=== PATIENT | male | born 1940 | race Caucasian/White ===

== ENCOUNTER 2025-01-16 10:41 | Outpatient (AMB) | payer MEDICARE, OTHER, SELFPAY ==
--- NOTE | 2025-01-16 10:51 | HO.NEPHOV ---
Vital Signs 01/16/25 11:00 Height 5 ft 10 in Weight 224 lb 8 oz BMI 32.2 BP 112/60 Blood Pressure Location Rt brachial Position Sitting Pulse 66 Pulse Source Pulse Oximeter Pulse Oximetry (%) 95 Oxygen Delivery Method Room Air Intake Visit Reasons: ENP: CKD STG3-LVM Family Medicine Physician Required: No Accompanied by: Spouse Allergies adhesive tape Allergy (Verified 01/16/25 10:59) Unknown guaifenesin (From Maxiphen) Allergy (Verified 01/16/25 10:59) Unknown niacin Allergy (Verified 01/16/25 10:59) Unknown phenylephrine (From Maxiphen) Allergy (Verified 01/16/25 10:59) Unknown HPI Comments Details: Thank you for referring Isra, for evaluation of CKD. He is 85 years of age who has been in good health. He is a diabetic . His A1c has been high and has been initiated on Mounjaro. He is also on Jardiance. He denies any retinopathy, significant proteinuria or neuropathy. He has H/O CVA, CAD, CABG, carotid disease and TAVR. He does not take any excessive nonsteroidal anti-inflammatories. He has no history of dry eyes and dry mouth or generalized joint pains. He does not get urinary infections. He tries to maintain good hydration. He has no hearing issues, sinusitis, epistaxis, photosensitivity, urinary symptoms, history of renal calculus, flank pain, new bone pain. He has no history of hypercalcemia. His serum creatinine has gone up from baseline. He is clinically well and was without any specific complaints [facility] Medical History (Updated 01/16/25 @ 10:58 by Toan Garcia MD) JOSUÉ (obstructive sleep apnea) Generalized anxiety disorder Glaucoma Coronary artery disease BPH (benign prostatic hyperplasia) HLD (hyperlipidemia) Hypertension, benign Surgical History (Updated 01/15/25 @ 09:55 by Darcy Burkett MA) History of coronary artery stent placement H/O eye surgery History of cardiac catheterization History of left hip replacement Hx of CABG S/P TAVR (transcatheter aortic valve replacement) Family History (Updated 01/16/25 @ 10:53 by Darcy Burkett MA) Mother Cancer Heart disease Diabetes mellitus Sister Cancer Heart disease Diabetes mellitus Brother Cancer Heart disease Father Heart disease Social History (Updated 01/16/25 @ 10:51 by Darcy Burkett MA) Alcohol intake: never Patient Tobacco Use Status: Never used Tobacco Use of substances other than those prescribed or required for medical reasons: No Review of Systems Const All systems reviewed & are unremarkable except as noted in HPI and below Physical Exam Const General: comfortable and no acute distress Orientation/consciousness: patient oriented x3 HEENT Head: Yes normocephalic Mouth: Normal oral and palatal mucosa present Eyes EOM: EOMs intact bilaterally Neck Neck: Yes supple Resp Auscultation: clear to auscultation bilaterally Cardio Jugular venous distension: no JVD Rate: regular rate GI Palpation (GI): Soft to palpation Auscultation: normal bowel sounds General: Yes no CVA tenderness Back/Spine/Pelvis Back: no CVA tenderness Skin General skin exam: no rashes or lesions noted Neuro General: patient oriented x3 and moves all extremities Extrem General: Yes no pedal edema Assessment & Plan Assessment & Plan (1) CKD stage 3a, GFR 45-59 ml/min: Code(s): N18.31 - Chronic kidney disease, stage 3a Category: Medical (2) Hypertension: Code(s): I10 - Essential (primary) hypertension Category: Medical Qualifiers: Hypertension type: primary hypertension Qualified Code(s): I10 - Essential (primary) hypertension Plan Isra has CKD likely from long standing hypertension, DM and vascular disease. He is not known to have any significant proteinuria. He does not take any excessive nonsteroidal inflammatories. He denies any renal calculi , microscopic hematuria , pedal edema or retinopathy. He has good urine output and there is no reason to suspect any obstructive uropathy. I asked him to cut down sodium in the diet and maintain good hydration. He is on Jardiance as well as losartan/HCTZ. I have ordered repeat renal functions along with further blood work . If his serum creatinine goes up, I plan to back off on ARB/HCTZ( especially with weight loss). I plan to do creatinine clearance and Doppler of his renal arteries with time. All questions answered. Follow-up appointment given Orders: Orders Protein Creatinine Ratio, Ur 3 Months I10 - Essential (primary) hypertension, N18.31 - Chronic kidney disease, stage 3a Parathyroid Hormone Intact 3 Months I10 - Essential (primary) hypertension, N18.31 - Chronic kidney disease, stage 3a Vitamin D 25-OH Total 3 Months I10 - Essential (primary) hypertension, N18.31 - Chronic kidney disease, stage 3a Complete Blood Count Auto Diff 3 Months I10 - Essential (primary) hypertension, N18.31 - Chronic kidney disease, stage 3a Electrolytes 3 Months I10 - Essential (primary) hypertension, N18.31 - Chronic kidney disease, stage 3a Calcium 3 Months I10 - Essential (primary) hypertension, N18.31 - Chronic kidney disease, stage 3a Blood Urea Nitrogen 3 Months I10 - Essential (primary) hypertension, N18.31 - Chronic kidney disease, stage 3a Creatinine 3 Months I10 - Essential (primary) hypertension, N18.31 - Chronic kidney disease, stage 3a Immunofixation Pnl, Serum 3 Months I10 - Essential (primary) hypertension, N18.31 - Chronic kidney disease, stage 3a Immunofixation, Random Urine 3 Months I10 - Essential (primary) hypertension, N18.31 - Chronic kidney disease, stage 3a Coding Level of Care Code New Pt Level 4 (10045) Diagnoses CKD stage 3a, GFR 45-59 ml/min N18.31 Primary hypertension I10 Hypertension type: primary hypertension
[2025-01-16 11:00] VITALS: BP 112/60; PULSE 66; O2SAT 95; BMI 32.2
--- OUTSIDE RECORDS SUMMARY | 2025-01-16 12:01 | XMS_ITS | Patient Health Record ---
Author Organization [facility] Address [address] [place] [address] Care Team Providers Care Web Support Engineer Name Role Phone CHARLENE DREW Primary Care Provider Wilfredo Stewart Unavailable [phone] Allergies Allergen (clinical drug ingredient) Drug/Non Drug Allergy documented on EMR Reaction Allergy Type Onset Date Status tape (uncoded) Unknown Allergy Activ e Maxiphen Unknown Drug Allergy Active Niacin Unknown Drug Allergy Active Results Component Value Reference Range Notes Basic Metabolic Panel [id number] Reviewed date:11/16/2024 07:42:50 AM Interpretation: Performing Lab:[facility], [address] [facility], Phone - [phone], Director - MDDavidy Notes/Report: Glucose 157 70-99 mg/dL BUN 46 8-27 mg/dL Creatinine 1.29 0.76-1.27 mg/dL eGFR 55 >59 mL/min/1.73 BUN/Creatinine Ratio 36 10-24 Sodium 138 134-144 mmol/L Potassium 3.7 3.5-5.2 mmol/L Chloride 97 96-106 mmol/L Carbon Dioxide, Total 18 20-29 mmol/L Lipid Panel-[id number] Reviewed date:11/16/2024 07:43:06 AM Interpretation: Performing Lab:[facility], [address] [place], [place], Phone - [phone], Director - MDDavidy Notes/Report: Cholesterol, Total 144 100-199 mg/dL Triglycerides 285 0-149 mg/dL HDL Cholesterol 32 >39 mg/dL VLDL Cholesterol Enrique 46 5-40 mg/dL LDL Chol Calc (NIH) 66 0-99 mg/dL Hemoglobin [id number] Reviewed date:11/16/2024 07:43:15 AM Interpretation: Performing Lab:[facility], [address] [place] [address], Phone - [phone], Director - Ziggy Notes/Report: Hemoglobin A1c 8.9 4.8-5.6 % . Prediabetes: 5.7 - 6.4 Diabetes: >6.4 Glycemic control for adults with diabetes: <7.0 Lipid Panel-[id number] Reviewed date:07/22/2024 08:23:28 AM Interpretation: Performing Lab:[facility] [place], [address] [place] [address], [place], Phone - [phone], Director - Ziggy Notes/Report: Cholesterol, Total 146 100-199 mg/dL Triglycerides 332 0-149 mg/dL HDL Cholesterol 29 >39 mg/dL VLDL Cholesterol Enrique 52 5-40 mg/dL LDL Chol Calc ([facility]) 65 0-99 mg/dL Hemoglobin [id number] Reviewed date:07/22/2024 08:19:22 AM Interpretation: Performing Lab:[facility] [place], [address] [place] [address], [place], Phone - [phone], Director - Ziggy Notes/Report: Hemoglobin A1c 7.9 4.8-5.6 % . Prediabetes: 5.7 - 6.4 Diabetes: >6.4 Glycemic control for adults with diabetes: <7.0 Reason For Referral Reason Evaluation and manag ement Diagnosis 1 Fatty (change of) li tran, not elsewhere classified (K76.0) Referral Organization [facility] Referring Provider First Name CHANG Referring Provider Last Name GU Referring Provider Speciality Internal M edicine Referred Provider Specialty Dietitian General Notes Referral sent to [facility] ([address] [place] [address] ) - Office will call patient for scheduling., Luisito Callaway 05/03/2024 02:38:31 PM > Referral Priority Routine Reason ckd stage 3a Pleas e evaluate and treat Diagnosis 1 Atherosclerotic hear t disease of [place] coronary artery without angina pectoris (I25.10) Referral Organization [facility] Referring Provider First Name CHANG Referring Provider Last Name GU Referring Provider Speciality Internal M edicine Referred Provider Specialty Nephrology General Notes Please call the fabrice ent to schedule the appointment, Krista Reyes 12/04/2024 03:41:43 PM > Referral Priority Routine Reason Arthritis both hands - Arthritis center Please evaluate and treat Diagnosis 1 Atherosclerotic hear t disease [place] coronary artery without angina pectoris (I25.10) Referral Organization [facility] Referring Provider First Name CHANG Referring Provider Last Name TODDSwati Referring Provider Speciality Internal M edicine Referred Provider Specialty Rheumatology General Notes Please call the fabrice ent to schedule the appointment, Krista Reyes 12/04/2024 03:38:56 PM > Referral Priority Routine Medications Medication SIG (Take, Route, Frequency, Duration) Notes Start Date End Date Status Ezetimibe 10 MG TAKE 1 TABLET EVERY DAY; Duration: 90 Active Docusate Sodium 100 MG 1 capsule as need ed Orally Once a day Not-Taking Timolol Maleate 0.5 % 1 drop into both e yes Ophthalmic BID Active Benzonatate 100 MG 1 capsule as needed Orally Three times a day; Duration: 7 days 05/06/2023 Not-Taking Januvia 25 MG as directed Orally daily; Duration: 30 days 12/15/2024 Active Fluticasone Propionate 50 MCG/ACT USE 1 SPRAY IN EACH NOSTRIL ONE TIME DAILY; Duration: 90 Active cloNIDine HCl 0.1 MG TAKE 1 TABLET EVERY DAY; Duration: 90 Active Albuterol Sulfate HFA 108 (90 Base) MCG/ACT INHALE 1 PUFF EVERY 4 HOURS NEEDED; Duration: 30 Active Pantoprazole Sodium 40 MG TAKE 1 TABLET EVERY DAY; Duration: 90 Active Isosorbide Mononitrate ER 30 MG TAKE 1 TABLET TWICE DAILY; Duration: 90 Active metFORMIN HCl 500 MG 1 tablet with a aliya l Orally twice a day; Duration: 30 days 11/29/2024 Active Centrum Silver 50+Men - as directed Orally Active Guzman Aspirin EC Low Dose 81 MG 1 tablet Orally Once a day; Duration: 30 day(s) Active Tirzepatide 2.5 MG/0.5ML 2.5 mg Subcutan eous daily; Duration: 30 days 11/29/2024 Active Co Q 10 100 MG 1 capsule with a aliya l Orally Once a day; Duration: 30 day(s) Active amLODIPine Besylate 10 MG 1 tablet Orall y Once a day; Duration: 90 Active Metoprolol Succinate ER 25 MG TAKE 1 TABLET AT BEDTIME; Duration: 90 Active Misc. Devices - DIABETIC SHOES; Duration: 100 days 11/29/2024 Active Nitroglycerin 0.[address] 1 TABLET UNDER THE TONGUE; Duration: 90 days As needed Active Tamsulosin HCl 0.4 MG 1 capsule Orally e very other day Active Apoaequorin 10 MG as directed Orally Active Gemfibrozil 600 MG TAKE 1 TABLET TWICE A DAY 30 MINUTES BEFORE MORNING AND EVENING MEALS; Duration: 90 Active Hydrocortisone 2.5 % 1 application Externally Twice a day; Duration: 30 days 04/02/2023 Active Jardiance 25 MG 1 tablet in the morn ing Orally Once a day; Duration: 90 days Active Breo Ellipta 100-25 MCG/ACT 1 puff Inhalation Once a day Active Venlafaxine HCl 75 MG 1 tablet with food Orally Once a day; Duration: 90 days Active Esomeprazole Magnesium 20 MG 1 capsule Orally Once a day Active Atorvastatin Calcium 80 MG TAKE 1 TABLET EVERY DAY; Duration: 90 days Active busPIRone HCl 10 MG 1 tablet Orally Twic e a day; Duration: 90 days Active Metoprolol Succinate ER 50 MG TAKE 1 TABLET EVERY MORNING; Duration: 90 Active Losartan Potassium-HCTZ 50-12.5 MG TAKE 3 TABLETS ONE TIME DAILY; Duration: 90 Active Clopidogrel Bisulfate 75 MG TAKE 1 TABLET EVERY DAY; Duration: 90 Active Immunizations Vaccine Route Administration Date Status Comme nts COVID 19 Pfizer Unknown 07/20/2020 Administered COVID 19 Pfizer Unknown 08/10/2020 Administered COVID 19 Pfizer Unknown 04/23/2021 Administered COVID Pfizer Unknown 10/17/2021 Administered COVID-19 Pfizer Unknown 04/16/2022 Administered Flu Unknown 03/22/2024 Administered Flu High-Dose Unknown 04/12/2021 Administered Flu High-Dose Unknown 04/16/2022 Administered Flu High-Dose Unknown 03/31/2023 Administered Influenza High Dose Unknown 04/21/2018 Administered Influenza, high dose seasonal IM Intramuscular 04/14/2019 Administered Influenza, high dose seasonal Unknown 04/09/2021 Administered Influenza, high dose seasonal Unknown 04/12/2021 Administered Social History Tobacco Use: Social History Observation Description Date Details (start date - stop date) Never Smoker NA - NA Tobacco Use/Smoking Question Answer Notes Are you a nonsmoker Alcohol Screen (Audit-C) Question Answer Notes Did you have a drink contain ing alcohol in the past year? Yes How often did you have a dri nk containing alcohol in the past year? Monthly or less (1 point) How many drinks did you have on a typical day when you were drinking in the past year? 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.21) Active confirmed Problem Disorder due to type 2 diabetes mellitus (960266567) Type 2 diabetes mellitus with unspecified complications (E11.8) Active confirmed Problem Obesity due to excess calories (818741551) Other obesity due to excess calories (E66.09) Active confirmed Problem Mixed hyperlipidemia (610668273) Mixed hyperlipidemia (E78.2) Active confirmed Problem Anxiety disorder (466960356) Anxiety disorder, unspecified (F41.9) Active confirmed Problem Obstructive sleep apnea syndrome (disorder) (65215252) Obstructive sleep apnea (adult) (pediatric) (G47.33) Active confirmed Problem Chronic kidney disease due to hypertension (751374593824626) Hypertensive chronic kidney disease with stage 1 through stage 4 chronic kidney disease, or unspecified chronic kidney disease (I12.9) Active confirmed Problem Angina pectoris (583025826) Angina pectoris, unspecified (I20.9) Active confirmed Problem Atherosclerotic heart disease of [place] coronary artery without angina pectoris (935644407359041) Atherosclerotic heart disease [place] coronary artery without angina pectoris (I25.10) Active confirmed Problem Coronary arteriosclerosis of coronary artery bypass graft (176058336) Atherosclerosis of coronary artery bypass graft(s) without angina pectoris (I25.810) Active confirmed Problem Aortic valve disorder (7530950) Other nonrheumatic aortic valve disorders (I35.8) Active confirmed Problem Carotid artery occlusion (480829208) Occlusion and stenosis of unspecified carotid artery (I65.29) Active confirmed Problem Gastro-esophageal reflux disease without esophagitis (277976302) Gastro-esophageal reflux disease without esophagitis (K21.9) Active confirmed Problem Umbilical hernia (212565499) Umbilical hernia without obstruction or gangrene (K42.9) Active confirmed Problem Fatty liver (931942995) Fatty (change of) liver, not elsewhere classified (K76.0) Active confirmed Problem Degeneration of thoracolumbar intervertebral disc (16625893) Other intervertebral disc degeneration, thoracolumbar region (M51.35) Active confirmed Problem Disorder of urinary bladder (75145788) Other specified disorders of bladder (N32.89) Active confirmed Problem Balanitis (87210859) Balanitis (N48.1) Active confirmed Problem Abnormal gait (63181755) Other abnormalities of gait and mobility (R26.89) Active confirmed Problem Impaired fasting glucose (764915611) Impaired fasting glucose (R73.01) Active confirmed Problem Essential hypertension (42427883) Essential (primary) hypertension (I10) Active confirmed Problem Benign prostatic hypertrophy without outflow obstruction (847819059) Benign prostatic hyperplasia without lower urinary tract symptoms (N40.0) Active confirmed Problem Chronic kidney disease stage 3A (disorder) (745429358) Chronic kidney disease, stage 3a (N18.31) Active confirmed Vital Signs Heart Rate 71 /min 11/29/2024 Temperature 95.6 degrees Fahrenheit 11/29/2024 Oximetry 97 % 11/29/2024 Blood pressure diastolic 70 mm Hg 11/29/2024 Height 68.50 in 11/29/2024 Blood pressure systolic 128 mm Hg 11/29/2024 Weight 230.7 lbs 11/29/2024 BMI 34.56 kg/m2 11/29/2024 Encounters Encounter Location Date Provider Diagnosis [facility] [address] [place] [address] 05/03/2024 CHARLENE DREW Atherosclerotic hear t disease of [place] coronary artery without angina pectoris I25.10 ; Annual physical exam Z00.00 ; Essential (primary) hypertension I10 ; Mixed hyperlipidemia E78.2 ; Obstructive sleep apnea (adult) (pediatric) G47.33 ; Type 2 diabetes mellitus with unspecified complications E11.8 ; Encounter for general adult medical examination without abnormal findings Z00.00 and Anxiety disorder, unspecified F41.9 [facility] [address] [place] [address] 08/03/2024 CHARLENE DREW Atherosclerotic hear t disease [place] coronary artery without angina pectoris I25.10 ; Essential (primary) hypertension I10 ; Mixed hyperlipidemia E78.2 ; Obstructive sleep apnea (adult) (pediatric) G47.33 ; Type 2 diabetes mellitus with unspecified complications E11.8 ; Encounter for general adult medical examination without abnormal findings Z00.00 and Anxiety disorder, unspecified F41.9 [facility] [address] [place] [address] 11/29/2024 CHANG TODDL Atherosclerotic hear t disease of [place] coronary artery without angina pectoris I25.10 ; Essential (primary) hypertension I10 ; Mixed hyperlipidemia E78.2 ; Obstructive sleep apnea (adult) (pediatric) G47.33 ; Encounter for general adult medical examination without abnormal findings Z00.00 ; Diabetes mellitus due to underlying condition with diabetic nephropathy E08.21 ; Anxiety disorder, unspecified F41.9 ; Chronic kidney disease, stage 3a N18.31 ; Occlusion and stenosis of unspecified carotid artery I65.29 and Hypertensive chronic kidney disease with stage 1 through stage 4 chronic kidney disease, or unspecified chronic kidney disease I12.[address] [place] [address] 04/05/[address] [place] [address] 04/10/[address] [place] [address] 04/14/[address] [place] [address] 05/03/[address] [place] [address] 05/03/[address] [place] [address] 11/29/2024 CHARLENE DREW Type 2 diabetes mellitus with unspecified complications E11.[address] [place] [address] 12/05/2024 CHARLENE DREW Type 2 diabetes mellitus with unspecified complications E11.[address] [place] [address] 12/13/2024 Wilfredo Stewart [address] [place] [address] 12/15/2024 Wilfredo Stewart Type 2 diabetes mellitus with unspecified complications E11.8 [facility] [address] [facility] [address] [place] [address] 12/15/2024 Wilfredo Stewart Type 2 diabetes mellitus with unspecified complications E11.8 [facility] [address] [facility] [address] [place] [address] 12/18/2024 Wilfredo Stewart Type 2 diabetes mellitus with unspecified complications E11.8 [facility] [address] [place] [address] 01/01/2025 CHARLENE DREW [address] [place] [address] 01/11/2025 CHARLENE BROOKSSwati Assessments Encounter Date Diagnosis (ICD Code) Assessment Notes Treatment Notes Treatment Clinical Notes Section Notes 05/03/2024 Atherosclerotic heart disease of [place] coronary artery without angina pectoris (ICD-10 - I25.10) Isra is 84 years gentleman with coronary artery disease/CABG, TAVR and f/u with Dr Gaines, obstructive sleep apnea, acid reflux, generalized anxiety disorder, recent diagnosis of SANTIZO is here for annual physical. Coronary artery disease/ CABG/ TAVR.He is stable and he sees cardiology Dr. Gaines at [facility]. He is scheduled for echocardiogram in the next few weeks for follow-up on the aortic valve. He is on statins, beta blockers, Plavix and aspirin. Hypertension/hyperlipi demia. Blood pressure well controlled on current regimen. He has hypertriglyceridemia and he is on gemfibrozil and Zetia. Diet restrictions discussed DM type II. Last A1c is 8.3. His goal is around 8. Continue current regimen and dietary restrictions discussed Fatty liver/nonalcoholic hepatic steatosis. He follows up with GI. He has already lost 20 pounds. He is given referral to dietitian. We will see him in 3 months if there is no improvement we will consider GLP-1 TIA/CVA. He has risk factors and he follows up with neurologist. No neural deficit on examination but sometimes he has difficulty finding right words. Continue on Plavix and aspirin and optimize medical management. Obstructive sleep apnea. Currently on CPAP machine and tolerating it fine .Generalized anxiety disorder. Continue venlafaxine 37.5 mg 1 tablet twice a day and we increase buspirone to 10 mg twice a day. His healthcare proxy is Merry and her phone number is [phone] and he is full code He is up-to-date on all specific screening 05/03/2024 Annual physical exam (ICD-10 - Z00.00) Isra is 84 years gentleman with coronary artery disease/CABG, TAVR and f/u with Dr Gaines, obstructive sleep apnea, acid reflux, generalized anxiety disorder, recent diagnosis of SANTIZO is here for annual physical. Coronary artery disease/ CABG/ TAVR.He is stable and he sees cardiology Dr. Gaines at [facility]. He is scheduled for echocardiogram in the next few weeks for follow-up on the aortic valve. He is on statins, beta blockers, Plavix and aspirin. Hypertension/hyperlipi demia. Blood pressure well controlled on current regimen. He has hypertriglyceridemia and he is on gemfibrozil and Zetia. Diet restrictions discussed DM type II. Last A1c is 8.3. His goal is around 8. Continue current regimen and dietary restrictions discussed Fatty liver/nonalcoholic hepatic steatosis. He follows up with GI. He has already lost 20 pounds. He is given referral to dietitian. We will see him in 3 months if there is no improvement we will consider GLP-1 TIA/CVA. He has risk factors and he follows up with neurologist. No neural deficit on examination but sometimes he has difficulty finding right words. Continue on Plavix and aspirin and optimize medical management. Obstructive sleep apnea. Currently on CPAP machine and tolerating it fine .Generalized anxiety disorder. Continue venlafaxine 37.5 mg 1 tablet twice a day and we increase buspirone to 10 mg twice a day. His healthcare proxy is Merry and her phone number is [phone] and he is full code He is up-to-date on all specific screening 08/03/2024 Atherosclerotic heart disease of [place] coronary artery without angina pectoris (ICD-10 - I25.10) Isra is 84 years gentleman with coronary artery disease/CABG, TAVR and f/u with Dr Gaines, obstructive sleep apnea, acid reflux, generalized anxiety disorder, recent diagnosis of SANTIZO is here for annual physical. Coronary artery disease/ CABG/ TAVR.He is stable and he sees cardiology Dr. Gaines at [facility]. He is on statins, beta blockers, Plavix and aspirin. Hypertension/hyperlipi demia. Blood pressure well controlled on current regimen. He has hypertriglyceridemia and he is on gemfibrozil and Zetia. Diet restrictions discussed DM type II. Last A1c is 7.9. His goal is under 8. we increased Jardiance to 25 mg daily and he will continue rest of the medications as directed. Fatty liver/nonalcoholic hepatic steatosis. He follows up with GI. He has already lost 20 pounds. He is given referral to dietitian. We will see him in 3 months if there is no improvement we will consider GLP-1 TIA/CVA. He follows up with neurologist. He had blood work and imaging done in hospital which did not show any acute finding except for specific changes and small infarcts. Continue on Plavix and aspirin and optimize medical management. Obstructive sleep apnea. Currently on CPAP machine and tolerating it fine .Generalized anxiety disorder. increase venlafaxine 75 mg 1 tablet twice a day and we increase buspirone to 10 mg twice a day. Dizziness. Multifactorial. As a mentioned above his workup for stroke was negative in the emergency room not too long ago. It can be arrhythmias but he had a loop recorder for 2 weeks which was negative. Other option is dehydration, low blood sugars, neuropathy, and internal ear pathology. He will benefit from ENT referral. His healthcare proxy is Merry and her phone number is [phone] and he is full code He is up-to-date on all specific screening 08/03/2024 Essential (primary) hypertension (ICD-10 - I10) Isra is 84 years gentleman with coronary artery disease/CABG, TAVR and f/u with Dr Gaines, obstructive sleep apnea, acid reflux, generalized anxiety disorder, recent diagnosis of SANTIZO is here for annual physical. Coronary artery disease/ CABG/ TAVR.He is stable and he sees cardiology Dr. Gaines at [facility]. He is on statins, beta blockers, Plavix and aspirin. Hypertension/hyperlipi demia. Blood pressure well controlled on current regimen. He has hypertriglyceridemia and he is on gemfibrozil and Zetia. Diet restrictions discussed DM type II. Last A1c is 7.9. His goal is under 8. we increased Jardiance to 25 mg daily and he will continue rest of the medications as directed. Fatty liver/nonalcoholic hepatic steatosis. He follows up with GI. He has already lost 20 pounds. He is given referral to dietitian. We will see him in 3 months if there is no improvement we will consider GLP-1 TIA/CVA. He follows up with neurologist. He had blood work and imaging done in hospital which did not show any acute finding except for specific changes and small infarcts. Continue on Plavix and aspirin and optimize medical management. Obstructive sleep apnea. Currently on CPAP machine and tolerating it fine .Generalized anxiety disorder. increase venlafaxine 75 mg 1 tablet twice a day and we increase buspirone to 10 mg twice a day. Dizziness. Multifactorial. As a mentioned above his workup for stroke was negative in the emergency room not too long ago. It can be arrhythmias but he had a loop recorder for 2 weeks which was negative. Other option is dehydration, low blood sugars, neuropathy, and internal ear pathology. He will benefit from ENT referral. His healthcare proxy is Merry and her phone number is [phone] and he is full code He is up-to-date on all specific screening 11/29/2024 Atherosclerotic heart disease of [place] coronary artery without angina pectoris (ICD-10 - I25.10) Isra is 84 years gentleman with coronary artery disease/CABG, TAVR and f/u with Dr Gaines, obstructive sleep apnea, acid reflux, generalized anxiety disorder, recent diagnosis of SANTIZO is here for follow-up on blood work. His A1c is 8.9 which has gone up from 7.9. He also complains of osteoarthritis. Coronary artery disease/ CABG/ TAVR.He is stable and he sees cardiology Dr. Gaines at [facility]. He is on statins, beta blockers, Plavix and aspirin. Hypertension/hyperlipi demia. Blood pressure well controlled on current regimen. He has hypertriglyceridemia and he is on gemfibrozil and Zetia. Diet restrictions discussed DM type II. Last A1c is 8.9. His goal is under 9 considering his age and Medicare requirement. continue on Jardiance to 25 mg daily and added metformin 500 mg 1 tablet twice a day along with Mounjaro 2.5 mg subcutaneous injection every weekly. Side effects explained. We will titrate the dose moving forward as needed. This will help with weight loss also. 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 He also follows up with podiatry and we gave him a prescription for diabetic shoes. Chronic kidney disease stage IIIa. Differential diagnosis is long-standing history of coronary artery disease, hypertensive arteriosclerosis. Referral to course developer Dr. Garcia for close follow-up and surveillance Fatty liver/nonalcoholic hepatic steatosis. He follows up with GI plan he is stable TIA/CVA. He follows up with neurologist. He had blood work and imaging done in hospital which did not show any acute finding except for specific changes and small infarcts. Continue on Plavix and aspirin and optimize medical management. Obstructive sleep apnea. Currently on CPAP machine and tolerating it fine .Generalized anxiety disorder. increase venlafaxine 75 mg 1 tablet twice a day and we increase buspirone to 10 mg twice a day. Osteoarthritis multiple joints. Referral to arthritis Center for intra-articular injections. His healthcare proxy is Merry and her phone number is [phone] and he is full code He is up-to-date on all specific screening 11/29/2024 Essential (primary) hypertension (ICD-10 - I10) Isra is 84 years gentleman with coronary artery disease/CABG, TAVR and f/u with Dr Gaines, obstructive sleep apnea, acid reflux, generalized anxiety disorder, recent diagnosis of SANTIZO is here for follow-up on blood work. His A1c is 8.9 which has gone up from 7.9. He also complains of osteoarthritis. Coronary artery disease/ CABG/ TAVR.He is stable and he sees cardiology Dr. Gaines at [facility]. He is on statins, beta blockers, Plavix and aspirin. Hypertension/hyperlipi demia. Blood pressure well controlled on current regimen. He has hypertriglyceridemia and he is on gemfibrozil and Zetia. Diet restrictions discussed DM type II. Last A1c is 8.9. His goal is under 9 considering his age and Medicare requirement. continue on Jardiance to 25 mg daily and added metformin 500 mg 1 tablet twice a day along with Mounjaro 2.5 mg subcutaneous injection every weekly. Side effects explained. We will titrate the dose moving forward as needed. This will help with weight loss also. 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 He also follows up with podiatry and we gave him a prescription for diabetic shoes. Chronic kidney disease stage IIIa. Differential diagnosis is long-standing history of coronary artery disease, hypertensive arteriosclerosis. Referral to course developer Dr. Garcia for close follow-up and surveillance Fatty liver/nonalcoholic hepatic steatosis. He follows up with GI plan he is stable TIA/CVA. He follows up with neurologist. He had blood work and imaging done in hospital which did not show any acute finding except for specific changes and small infarcts. Continue on Plavix and aspirin and optimize medical management. Obstructive sleep apnea. Currently on CPAP machine and tolerating it fine .Generalized anxiety disorder. increase venlafaxine 75 mg 1 tablet twice a day and we increase buspirone to 10 mg twice a day. Osteoarthritis multiple joints. Referral to [facility] for intra-articular injections. His healthcare proxy is Merry and her phone number is [phone] and he is full code He is up-to-date on all specific screening 11/29/2024 Type 2 diabetes mellitus with unspecified complications (ICD-10 - E11.8) 12/05/2024 Type 2 diabetes mellitus with unspecified complications (ICD-10 - E11.8) 12/15/2024 Type 2 diabetes mellitus with unspecified complications (ICD-10 - E11.8) 12/15/2024 Type 2 diabetes mellitus with unspecified complications (ICD-10 - E11.8) 12/18/2024 Type 2 diabetes mellitus with unspecified complications (ICD-10 - E11.8) 11/29/2024 Mixed hyperlipidemia (ICD-10 - E78.2) Isra is 84 years gentleman with coronary artery disease/CABG, TAVR and f/u with Dr Gaines, obstructive sleep apnea, acid reflux, generalized anxiety disorder, recent diagnosis of SANTIZO is here for follow-up on blood work. His A1c is 8.9 which has gone up from 7.9. He also complains of osteoarthritis. Coronary artery disease/ CABG/ TAVR.He is stable and he sees cardiology Dr. Gaines at [facility]. He is on statins, beta blockers, Plavix and aspirin. Hypertension/hyperlipi demia. Blood pressure well controlled on current regimen. He has hypertriglyceridemia and he is on gemfibrozil and Zetia. Diet restrictions discussed DM type II. Last A1c is 8.9. His goal is under 9 considering his age and Medicare requirement. continue on Jardiance to 25 mg daily and added metformin 500 mg 1 tablet twice a day along with Mounjaro 2.5 mg subcutaneous injection every weekly. Side effects explained. We will titrate the dose moving forward as needed. This will help with weight loss also. 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 He also follows up with podiatry and we gave him a prescription for diabetic shoes. Chronic kidney disease stage IIIa. Differential diagnosis is long-standing history of coronary artery disease, hypertensive arteriosclerosis. Referral to course developer Dr. Garcia for close follow-up and surveillance Fatty liver/nonalcoholic hepatic steatosis. He follows up with GI plan he is stable TIA/CVA. He follows up with neurologist. He had blood work and imaging done in hospital which did not show any acute finding except for specific changes and small infarcts. Continue on Plavix and aspirin and optimize medical management. Obstructive sleep apnea. Currently on CPAP machine and tolerating it fine .Generalized anxiety disorder. increase venlafaxine 75 mg 1 tablet twice a day and we increase buspirone to 10 mg twice a day. Osteoarthritis multiple joints. Referral to [facility] for intra-articular injections. His healthcare proxy is Merry and her phone number is [phone] and he is full code He is up-to-date on all specific screening 08/03/2024 Mixed hyperlipidemia (ICD-10 - E78.2) Isra is 84 years gentleman with coronary artery disease/CABG, TAVR and f/u with Dr Gaines, obstructive sleep apnea, acid reflux, generalized anxiety disorder, recent diagnosis of SANTIZO is here for annual physical. Coronary artery disease/ CABG/ TAVR.He is stable and he sees cardiology Dr. Gaines at [facility]. He is on statins, beta blockers, Plavix and aspirin. Hypertension/hyperlipi demia. Blood pressure well controlled on current regimen. He has hypertriglyceridemia and he is on gemfibrozil and Zetia. Diet restrictions discussed DM type II. Last A1c is 7.9. His goal is under 8. we increased Jardiance to 25 mg daily and he will continue rest of the medications as directed. Fatty liver/nonalcoholic hepatic steatosis. He follows up with GI. He has already lost 20 pounds. He is given referral to dietitian. We will see him in 3 months if there is no improvement we will consider GLP-1 TIA/CVA. He follows up with neurologist. He had blood work and imaging done in hospital which did not show any acute finding except for specific changes and small infarcts. Continue on Plavix and aspirin and optimize medical management. Obstructive sleep apnea. Currently on CPAP machine and tolerating it fine .Generalized anxiety disorder. increase venlafaxine 75 mg 1 tablet twice a day and we increase buspirone to 10 mg twice a day. Dizziness. Multifactorial. As a mentioned above his workup for stroke was negative in the emergency room not too long ago. It can be arrhythmias but he had a loop recorder for 2 weeks which was negative. Other option is dehydration, low blood sugars, neuropathy, and internal ear pathology. He will benefit from ENT referral. His healthcare proxy is Merry and her phone number is [phone] and he is full code He is up-to-date on all specific screening 05/03/2024 Essential (primary) hypertension (ICD-10 - I10) Isra is 84 years gentleman with coronary artery disease/CABG, TAVR and f/u with Dr Gaines, obstructive sleep apnea, acid reflux, generalized anxiety disorder, recent diagnosis of SANTIZO is here for annual physical. Coronary artery disease/ CABG/ TAVR.He is stable and he sees cardiology Dr. Gaines at [facility]. He is scheduled for echocardiogram in the next few weeks for follow-up on the aortic valve. He is on statins, beta blockers, Plavix and aspirin. Hypertension/hyperlipi demia. Blood pressure well controlled on current regimen. He has hypertriglyceridemia and he is on gemfibrozil and Zetia. Diet restrictions discussed DM type II. Last A1c is 8.3. His goal is around 8. Continue current regimen and dietary restrictions discussed Fatty liver/nonalcoholic hepatic steatosis. He follows up with GI. He has already lost 20 pounds. He is given referral to dietitian. We will see him in 3 months if there is no improvement we will consider GLP-1 TIA/CVA. He has risk factors and he follows up with neurologist. No neural deficit on examination but sometimes he has difficulty finding right words. Continue on Plavix and aspirin and optimize medical management. Obstructive sleep apnea. Currently on CPAP machine and tolerating it fine .Generalized anxiety disorder. Continue venlafaxine 37.5 mg 1 tablet twice a day and we increase buspirone to 10 mg twice a day. His healthcare proxy is Merry and her phone number is [phone] and he is full code He is up-to-date on all specific screening 05/03/2024 Mixed hyperlipidemia (ICD-10 - E78.2) Isra is 84 years gentleman with coronary artery disease/CABG, TAVR and f/u with Dr Gaines, obstructive sleep apnea, acid reflux, generalized anxiety disorder, recent diagnosis of SANTIZO is here for annual physical. Coronary artery disease/ CABG/ TAVR.He is stable and he sees cardiology Dr. Gaines at [facility]. He is scheduled for echocardiogram in the next few weeks for follow-up on the aortic valve. He is on statins, beta blockers, Plavix and aspirin. Hypertension/hyperlipi demia. Blood pressure well controlled on current regimen. He has hypertriglyceridemia and he is on gemfibrozil and Zetia. Diet restrictions discussed DM type II. Last A1c is 8.3. His goal is around 8. Continue current regimen and dietary restrictions discussed Fatty liver/nonalcoholic hepatic steatosis. He follows up with GI. He has already lost 20 pounds. He is given referral to dietitian. We will see him in 3 months if there is no improvement we will consider GLP-1 TIA/CVA. He has risk factors and he follows up with neurologist. No neural deficit on examination but sometimes he has difficulty finding right words. Continue on Plavix and aspirin and optimize medical management. Obstructive sleep apnea. Currently on CPAP machine and tolerating it fine .Generalized anxiety disorder. Continue venlafaxine 37.5 mg 1 tablet twice a day and we increase buspirone to 10 mg twice a day. His healthcare proxy is Merry and her phone number is [phone] and he is full code He is up-to-date on all specific screening 08/03/2024 Obstructive sleep apnea (adult) (pediatric) (ICD-10 - G47.33) Isra is 84 years gentleman with coronary artery disease/CABG, TAVR and f/u with Dr Gaines, obstructive sleep apnea, acid reflux, generalized anxiety disorder, recent diagnosis of SANTIZO is here for annual physical. Coronary artery disease/ CABG/ TAVR.He is stable and he sees cardiology Dr. Gaines at [facility]. He is on statins, beta blockers, Plavix and aspirin. Hypertension/hyperlipi demia. Blood pressure well controlled on current regimen. He has hypertriglyceridemia and he is on gemfibrozil and Zetia. Diet restrictions discussed DM type II. Last A1c is 7.9. His goal is under 8. we increased Jardiance to 25 mg daily and he will continue rest of the medications as directed. Fatty liver/nonalcoholic hepatic steatosis. He follows up with GI. He has already lost 20 pounds. He is given referral to dietitian. We will see him in 3 months if there is no improvement we will consider GLP-1 TIA/CVA. He follows up with neurologist. He had blood work and imaging done in hospital which did not show any acute finding except for specific changes and small infarcts. Continue on Plavix and aspirin and optimize medical management. Obstructive sleep apnea. Currently on CPAP machine and tolerating it fine .Generalized anxiety disorder. increase venlafaxine 75 mg 1 tablet twice a day and we increase buspirone to 10 mg twice a day. Dizziness. Multifactorial. As a mentioned above his workup for stroke was negative in the emergency room not too long ago. It can be arrhythmias but he had a loop recorder for 2 weeks which was negative. Other option is dehydration, low blood sugars, neuropathy, and internal ear pathology. He will benefit from ENT referral. His healthcare proxy is Merry and her phone number is [phone] and he is full code He is up-to-date on all specific screening 11/29/2024 Obstructive sleep apnea (adult) (pediatric) (ICD-10 - G47.33) Isra is 84 years gentleman with coronary artery disease/CABG, TAVR and f/u with Dr Gaines, obstructive sleep apnea, acid reflux, generalized anxiety disorder, recent diagnosis of SANTIZO is here for follow-up on blood work. His A1c is 8.9 which has gone up from 7.9. He also complains of osteoarthritis. Coronary artery disease/ CABG/ TAVR.He is stable and he sees cardiology Dr. Gaines at [facility]. He is on statins, beta blockers, Plavix and aspirin. Hypertension/hyperlipi demia. Blood pressure well controlled on current regimen. He has hypertriglyceridemia and he is on gemfibrozil and Zetia. Diet restrictions discussed DM type II. Last A1c is 8.9. His goal is under 9 considering his age and Medicare requirement. continue on Jardiance to 25 mg daily and added metformin 500 mg 1 tablet twice a day along with Mounjaro 2.5 mg subcutaneous injection every weekly. Side effects explained. We will titrate the dose moving forward as needed. This will help with weight loss also. 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 He also follows up with podiatry and we gave him a prescription for diabetic shoes. Chronic kidney disease stage IIIa. Differential diagnosis is long-standing history of coronary artery disease, hypertensive arteriosclerosis. Referral to course developer Dr. Garcia for close follow-up and surveillance Fatty liver/nonalcoholic hepatic steatosis. He follows up with GI plan he is stable TIA/CVA. He follows up with neurologist. He had blood work and imaging done in hospital which did not show any acute finding except for specific changes and small infarcts. Continue on Plavix and aspirin and optimize medical management. Obstructive sleep apnea. Currently on CPAP machine and tolerating it fine .Generalized anxiety disorder. increase venlafaxine 75 mg 1 tablet twice a day and we increase buspirone to 10 mg twice a day. Osteoarthritis multiple joints. Referral to [facility] for intra-articular injections. His healthcare proxy is Merry and her phone number is [phone] and he is full code He is up-to-date on all specific screening 11/29/2024 Encounter for general adult medical examination without abnormal findings (ICD-10 - Z00.00) Isra is 84 years gentleman with coronary artery disease/CABG, TAVR and f/u with Dr Gaines, obstructive sleep apnea, acid reflux, generalized anxiety disorder, recent diagnosis of SANTIZO is here for follow-up on blood work. His A1c is 8.9 which has gone up from 7.9. He also complains of osteoarthritis. Coronary artery disease/ CABG/ TAVR.He is stable and he sees cardiology Dr. Gaines at [facility]. He is on statins, beta blockers, Plavix and aspirin. Hypertension/hyperlipi demia. Blood pressure well controlled on current regimen. He has hypertriglyceridemia and he is on gemfibrozil and Zetia. Diet restrictions discussed DM type II. Last A1c is 8.9. His goal is under 9 considering his age and Medicare requirement. continue on Jardiance to 25 mg daily and added metformin 500 mg 1 tablet twice a day along with Mounjaro 2.5 mg subcutaneous injection every weekly. Side effects explained. We will titrate the dose moving forward as needed. This will help with weight loss also. 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 He also follows up with podiatry and we gave him a prescription for diabetic shoes. Chronic kidney disease stage IIIa. Differential diagnosis is long-standing history of coronary artery disease, hypertensive arteriosclerosis. Referral to course developer Dr. Garcia for close follow-up and surveillance Fatty liver/nonalcoholic hepatic steatosis. He follows up with GI plan he is stable TIA/CVA. He follows up with neurologist. He had blood work and imaging done in hospital which did not show any acute finding except for specific changes and small infarcts. Continue on Plavix and aspirin and optimize medical management. Obstructive sleep apnea. Currently on CPAP machine and tolerating it fine .Generalized anxiety disorder. increase venlafaxine 75 mg 1 tablet twice a day and we increase buspirone to 10 mg twice a day. Osteoarthritis multiple joints. Referral to [facility] for intra-articular injections. His healthcare proxy is Merry and her phone number is [phone] and he is full code He is up-to-date on all specific screening 05/03/2024 Obstructive sleep apnea (adult) (pediatric) (ICD-10 - G47.33) Isra is 84 years gentleman with coronary artery disease/CABG, TAVR and f/u with Dr Gaines, obstructive sleep apnea, acid reflux, generalized anxiety disorder, recent diagnosis of SANTIZO is here for annual physical. Coronary artery disease/ CABG/ TAVR.He is stable and he sees cardiology Dr. Gaines at [facility]. He is scheduled for echocardiogram in the next few weeks for follow-up on the aortic valve. He is on statins, beta blockers, Plavix and aspirin. Hypertension/hyperlipi demia. Blood pressure well controlled on current regimen. He has hypertriglyceridemia and he is on gemfibrozil and Zetia. Diet restrictions discussed DM type II. Last A1c is 8.3. His goal is around 8. Continue current regimen and dietary restrictions discussed Fatty liver/nonalcoholic hepatic steatosis. He follows up with GI. He has already lost 20 pounds. He is given referral to dietitian. We will see him in 3 months if there is no improvement we will consider GLP-1 TIA/CVA. He has risk factors and he follows up with neurologist. No neural deficit on examination but sometimes he has difficulty finding right words. Continue on Plavix and aspirin and optimize medical management. Obstructive sleep apnea. Currently on CPAP machine and tolerating it fine .Generalized anxiety disorder. Continue venlafaxine 37.5 mg 1 tablet twice a day and we increase buspirone to 10 mg twice a day. His healthcare proxy is Merry and her phone number is [phone] and he is full code He is up-to-date on all specific screening 08/03/2024 Type 2 diabetes mellitus with unspecified complications (ICD-10 - E11.8) Isra is 84 years gentleman with coronary artery disease/CABG, TAVR and f/u with Dr Gaines, obstructive sleep apnea, acid reflux, generalized anxiety disorder, recent diagnosis of SANTIZO is here for annual physical. Coronary artery disease/ CABG/ TAVR.He is stable and he sees cardiology Dr. Gaines at [facility]. He is on statins, beta blockers, Plavix and aspirin. Hypertension/hyperlipi demia. Blood pressure well controlled on current regimen. He has hypertriglyceridemia and he is on gemfibrozil and Zetia. Diet restrictions discussed DM type II. Last A1c is 7.9. His goal is under 8. we increased Jardiance to 25 mg daily and he will continue rest of the medications as directed. Fatty liver/nonalcoholic hepatic steatosis. He follows up with GI. He has already lost 20 pounds. He is given referral to dietitian. We will see him in 3 months if there is no improvement we will consider GLP-1 TIA/CVA. He follows up with neurologist. He had blood work and imaging done in hospital which did not show any acute finding except for specific changes and small infarcts. Continue on Plavix and aspirin and optimize medical management. Obstructive sleep apnea. Currently on CPAP machine and tolerating it fine .Generalized anxiety disorder. increase venlafaxine 75 mg 1 tablet twice a day and we increase buspirone to 10 mg twice a day. Dizziness. Multifactorial. As a mentioned above his workup for stroke was negative in the emergency room not too long ago. It can be arrhythmias but he had a loop recorder for 2 weeks which was negative. Other option is dehydration, low blood sugars, neuropathy, and internal ear pathology. He will benefit from ENT referral. His healthcare proxy is Merry and her phone number is [phone] and he is full code He is up-to-date on all specific screening 05/03/2024 Type 2 diabetes mellitus with unspecified complications (ICD-10 - E11.8) Isra is 84 years gentleman with coronary artery disease/CABG, TAVR and f/u with Dr Gaines, obstructive sleep apnea, acid reflux, generalized anxiety disorder, recent diagnosis of SANTIZO is here for annual physical. Coronary artery disease/ CABG/ TAVR.He is stable and he sees cardiology Dr. Gaines at [facility]. He is scheduled for echocardiogram in the next few weeks for follow-up on the aortic valve. He is on statins, beta blockers, Plavix and aspirin. Hypertension/hyperlipi demia. Blood pressure well controlled on current regimen. He has hypertriglyceridemia and he is on gemfibrozil and Zetia. Diet restrictions discussed DM type II. Last A1c is 8.3. His goal is around 8. Continue current regimen and dietary restrictions discussed Fatty liver/nonalcoholic hepatic steatosis. He follows up with GI. He has already lost 20 pounds. He is given referral to dietitian. We will see him in 3 months if there is no improvement we will consider GLP-1 TIA/CVA. He has risk factors and he follows up with neurologist. No neural deficit on examination but sometimes he has difficulty finding right words. Continue on Plavix and aspirin and optimize medical management. Obstructive sleep apnea. Currently on CPAP machine and tolerating it fine .Generalized anxiety disorder. Continue venlafaxine 37.5 mg 1 tablet twice a day and we increase buspirone to 10 mg twice a day. His healthcare proxy is Merry and her phone number is [phone] and he is full code He is up-to-date on all specific screening 08/03/2024 Encounter for general adult medical examination without abnormal findings (ICD-10 - Z00.00) Isra is 84 years gentleman with coronary artery disease/CABG, TAVR and f/u with Dr Gaines, obstructive sleep apnea, acid reflux, generalized anxiety disorder, recent diagnosis of SANTIZO is here for annual physical. Coronary artery disease/ CABG/ TAVR.He is stable and he sees cardiology Dr. Gaines at [facility]. He is on statins, beta blockers, Plavix and aspirin. Hypertension/hyperlipi demia. Blood pressure well controlled on current regimen. He has hypertriglyceridemia and he is on gemfibrozil and Zetia. Diet restrictions discussed DM type II. Last A1c is 7.9. His goal is under 8. we increased Jardiance to 25 mg daily and he will continue rest of the medications as directed. Fatty liver/nonalcoholic hepatic steatosis. He follows up with GI. He has already lost 20 pounds. He is given referral to dietitian. We will see him in 3 months if there is no improvement we will consider GLP-1 TIA/CVA. He follows up with neurologist. He had blood work and imaging done in hospital which did not show any acute finding except for specific changes and small infarcts. Continue on Plavix and aspirin and optimize medical management. Obstructive sleep apnea. Currently on CPAP machine and tolerating it fine .Generalized anxiety disorder. increase venlafaxine 75 mg 1 tablet twice a day and we increase buspirone to 10 mg twice a day. Dizziness. Multifactorial. As a mentioned above his workup for stroke was negative in the emergency room not too long ago. It can be arrhythmias but he had a loop recorder for 2 weeks which was negative. Other option is dehydration, low blood sugars, neuropathy, and internal ear pathology. He will benefit from ENT referral. 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 His A1c is 8.9 which has gone up from 7.9. He also complains of osteoarthritis. Coronary artery disease/ CABG/ TAVR.He is stable and he sees cardiology Dr. Gaines at [facility]. He is on statins, beta blockers, Plavix and aspirin. Hypertension/hyperlipi demia. Blood pressure well controlled on current regimen. He has hypertriglyceridemia and he is on gemfibrozil and Zetia. Diet restrictions discussed DM type II. Last A1c is 8.9. His goal is under 9 considering his age and Medicare requirement. continue on Jardiance to 25 mg daily and added metformin 500 mg 1 tablet twice a day along with Mounjaro 2.5 mg subcutaneous injection every weekly. Side effects explained. We will titrate the dose moving forward as needed. This will help with weight loss also. 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 He also follows up with podiatry and we gave him a prescription for diabetic shoes. Chronic kidney disease stage IIIa. Differential diagnosis is long-standing history of coronary artery disease, hypertensive arteriosclerosis. Referral to course developer Dr. Garcia for close follow-up and surveillance Fatty liver/nonalcoholic hepatic steatosis. He follows up with GI plan he is stable TIA/CVA. He follows up with neurologist. He had blood work and imaging done in hospital which did not show any acute finding except for specific changes and small infarcts. Continue on Plavix and aspirin and optimize medical management. Obstructive sleep apnea. Currently on CPAP machine and tolerating it fine .Generalized anxiety disorder. increase venlafaxine 75 mg 1 tablet twice a day and we increase buspirone to 10 mg twice a day. Osteoarthritis multiple joints. Referral to [facility] Center for intra-articular injections. His healthcare proxy is Merry and her phone number is [phone] and he is full code He is up-to-date on all specific screening 11/29/2024 Anxiety disorder, unspecified (ICD-10 - F41.9) Isra is 84 years gentleman with coronary artery disease/CABG, TAVR and f/u with Dr Gaines, obstructive sleep apnea, acid reflux, generalized anxiety disorder, recent diagnosis of SANTIZO is here for follow-up on blood work. His A1c is 8.9 which has gone up from 7.9. He also complains of osteoarthritis. Coronary artery disease/ CABG/ TAVR.He is stable and he sees cardiology Dr. Gaines at [facility]. He is on statins, beta blockers, Plavix and aspirin. Hypertension/hyperlipi demia. Blood pressure well controlled on current regimen. He has hypertriglyceridemia and he is on gemfibrozil and Zetia. Diet restrictions discussed DM type II. Last A1c is 8.9. His goal is under 9 considering his age and Medicare requirement. continue on Jardiance to 25 mg daily and added metformin 500 mg 1 tablet twice a day along with Mounjaro 2.5 mg subcutaneous injection every weekly. Side effects explained. We will titrate the dose moving forward as needed. This will help with weight loss also. 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 He also follows up with podiatry and we gave him a prescription for diabetic shoes. Chronic kidney disease stage IIIa. Differential diagnosis is long-standing history of coronary artery disease, hypertensive arteriosclerosis. Referral to course developer Dr. Garcia for close follow-up and surveillance Fatty liver/nonalcoholic hepatic steatosis. He follows up with GI plan he is stable TIA/CVA. He follows up with neurologist. He had blood work and imaging done in hospital which did not show any acute finding except for specific changes and small infarcts. Continue on Plavix and aspirin and optimize medical management. Obstructive sleep apnea. Currently on CPAP machine and tolerating it fine .Generalized anxiety disorder. increase venlafaxine 75 mg 1 tablet twice a day and we increase buspirone to 10 mg twice a day. Osteoarthritis multiple joints. Referral to arthritis Center for intra-articular injections. His healthcare proxy is Merry and her phone number is [phone] and he is full code He is up-to-date on all specific screening 08/03/2024 Anxiety disorder, unspecified (ICD-10 - F41.9) Isra is 84 years gentleman with coronary artery disease/CABG, TAVR and f/u with Dr Gaines, obstructive sleep apnea, acid reflux, generalized anxiety disorder, recent diagnosis of SANTIZO is here for annual physical. Coronary artery disease/ CABG/ TAVR.He is stable and he sees cardiology Dr. Gaines at [facility]. He is on statins, beta blockers, Plavix and aspirin. Hypertension/hyperlipi demia. Blood pressure well controlled on current regimen. He has hypertriglyceridemia and he is on gemfibrozil and Zetia. Diet restrictions discussed DM type II. Last A1c is 7.9. His goal is under 8. we increased Jardiance to 25 mg daily and he will continue rest of the medications as directed. Fatty liver/nonalcoholic hepatic steatosis. He follows up with GI. He has already lost 20 pounds. He is given referral to dietitian. We will see him in 3 months if there is no improvement we will consider GLP-1 TIA/CVA. He follows up with neurologist. He had blood work and imaging done in hospital which did not show any acute finding except for specific changes and small infarcts. Continue on Plavix and aspirin and optimize medical management. Obstructive sleep apnea. Currently on CPAP machine and tolerating it fine .Generalized anxiety disorder. increase venlafaxine 75 mg 1 tablet twice a day and we increase buspirone to 10 mg twice a day. Dizziness. Multifactorial. As a mentioned above his workup for stroke was negative in the emergency room not too long ago. It can be arrhythmias but he had a loop recorder for 2 weeks which was negative. Other option is dehydration, low blood sugars, neuropathy, and internal ear pathology. He will benefit from ENT referral. His healthcare proxy is Merry and her phone number is [phone] and he is full code He is up-to-date on all specific screening 05/03/2024 Encounter for general adult medical examination without abnormal findings (ICD-10 - Z00.00) Isra is 84 years gentleman with coronary artery disease/CABG, TAVR and f/u with Dr Gaines, obstructive sleep apnea, acid reflux, generalized anxiety disorder, recent diagnosis of SANTIZO is here for annual physical. Coronary artery disease/ CABG/ TAVR.He is stable and he sees cardiology Dr. Gaines at [facility]. He is scheduled for echocardiogram in the next few weeks for follow-up on the aortic valve. He is on statins, beta blockers, Plavix and aspirin. Hypertension/hyperlipi demia. Blood pressure well controlled on current regimen. He has hypertriglyceridemia and he is on gemfibrozil and Zetia. Diet restrictions discussed DM type II. Last A1c is 8.3. His goal is around 8. Continue current regimen and dietary restrictions discussed Fatty liver/nonalcoholic hepatic steatosis. He follows up with GI. He has already lost 20 pounds. He is given referral to dietitian. We will see him in 3 months if there is no improvement we will consider GLP-1 TIA/CVA. He has risk factors and he follows up with neurologist. No neural deficit on examination but sometimes he has difficulty finding right words. Continue on Plavix and aspirin and optimize medical management. Obstructive sleep apnea. Currently on CPAP machine and tolerating it fine .Generalized anxiety disorder. Continue venlafaxine 37.5 mg 1 tablet twice a day and we increase buspirone to 10 mg twice a day. His healthcare proxy is Merry and her phone number is [phone] and he is full code He is up-to-date on all specific screening 11/29/2024 Chronic kidney disease, stage 3a (ICD-10 - N18.31) Isra is 84 years gentleman with coronary artery disease/CABG, TAVR and f/u with Dr Gaines, obstructive sleep apnea, acid reflux, generalized anxiety disorder, recent diagnosis of SANTIZO is here for follow-up on blood work. His A1c is 8.9 which has gone up from 7.9. He also complains of osteoarthritis. Coronary artery disease/ CABG/ TAVR.He is stable and he sees cardiology Dr. Gaines at [facility]. He is on statins, beta blockers, Plavix and aspirin. Hypertension/hyperlipi demia. Blood pressure well controlled on current regimen. He has hypertriglyceridemia and he is on gemfibrozil and Zetia. Diet restrictions discussed DM type II. Last A1c is 8.9. His goal is under 9 considering his age and Medicare requirement. continue on Jardiance to 25 mg daily and added metformin 500 mg 1 tablet twice a day along with Mounjaro 2.5 mg subcutaneous injection every weekly. Side effects explained. We will titrate the dose moving forward as needed. This will help with weight loss also. 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 He also follows up with podiatry and we gave him a prescription for diabetic shoes. Chronic kidney disease stage IIIa. Differential diagnosis is long-standing history of coronary artery disease, hypertensive arteriosclerosis. Referral to course developer Dr. Garcia for close follow-up and surveillance Fatty liver/nonalcoholic hepatic steatosis. He follows up with GI plan he is stable TIA/CVA. He follows up with neurologist. He had blood work and imaging done in hospital which did not show any acute finding except for specific changes and small infarcts. Continue on Plavix and aspirin and optimize medical management. Obstructive sleep apnea. Currently on CPAP machine and tolerating it fine .Generalized anxiety disorder. increase venlafaxine 75 mg 1 tablet twice a day and we increase buspirone to 10 mg twice a day. Osteoarthritis multiple joints. Referral to arthritis Center for intra-articular injections. His healthcare proxy is Merry and her phone number is [phone] and he is full code He is up-to-date on all specific screening 05/03/2024 Anxiety disorder, unspecified (ICD-10 - F41.9) Isra is 84 years gentleman with coronary artery disease/CABG, TAVR and f/u with Dr Gaines, obstructive sleep apnea, acid reflux, generalized anxiety disorder, recent diagnosis of SANTIZO is here for annual physical. Coronary artery disease/ CABG/ TAVR.He is stable and he sees cardiology Dr. Gaines at [facility]. He is scheduled for echocardiogram in the next few weeks for follow-up on the aortic valve. He is on statins, beta blockers, Plavix and aspirin. Hypertension/hyperlipi demia. Blood pressure well controlled on current regimen. He has hypertriglyceridemia and he is on gemfibrozil and Zetia. Diet restrictions discussed DM type II. Last A1c is 8.3. His goal is around 8. Continue current regimen and dietary restrictions discussed Fatty liver/nonalcoholic hepatic steatosis. He follows up with GI. He has already lost 20 pounds. He is given referral to dietitian. We will see him in 3 months if there is no improvement we will consider GLP-1 TIA/CVA. He has risk factors and he follows up with neurologist. No neural deficit on examination but sometimes he has difficulty finding right words. Continue on Plavix and aspirin and optimize medical management. Obstructive sleep apnea. Currently on CPAP machine and tolerating it fine .Generalized anxiety disorder. Continue venlafaxine 37.5 mg 1 tablet twice a day and we increase buspirone to 10 mg twice a day. His healthcare proxy is Merry and her phone number is [phone] and he is full code He is up-to-date on all specific screening 11/29/2024 Occlusion and stenosis of unspecified carotid artery (ICD-10 - I65.29) Isra is 84 years gentleman with coronary artery disease/CABG, TAVR and f/u with Dr Gaines, obstructive sleep apnea, acid reflux, generalized anxiety disorder, recent diagnosis of SANTIZO is here for follow-up on blood work. His A1c is 8.9 which has gone up from 7.9. He also complains of osteoarthritis. Coronary artery disease/ CABG/ TAVR.He is stable and he sees cardiology Dr. Gaines at [facility]. He is on statins, beta blockers, Plavix and aspirin. Hypertension/hyperlipi demia. Blood pressure well controlled on current regimen. He has hypertriglyceridemia and he is on gemfibrozil and Zetia. Diet restrictions discussed DM type II. Last A1c is 8.9. His goal is under 9 considering his age and Medicare requirement. continue on Jardiance to 25 mg daily and added metformin 500 mg 1 tablet twice a day along with Mounjaro 2.5 mg subcutaneous injection every weekly. Side effects explained. We will titrate the dose moving forward as needed. This will help with weight loss also. 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 He also follows up with podiatry and we gave him a prescription for diabetic shoes. Chronic kidney disease stage IIIa. Differential diagnosis is long-standing history of coronary artery disease, hypertensive arteriosclerosis. Referral to course developer Dr. Garcia for close follow-up and surveillance Fatty liver/nonalcoholic hepatic steatosis. He follows up with GI plan he is stable TIA/CVA. He follows up with neurologist. He had blood work and imaging done in hospital which did not show any acute finding except for specific changes and small infarcts. Continue on Plavix and aspirin and optimize medical management. Obstructive sleep apnea. Currently on CPAP machine and tolerating it fine .Generalized anxiety disorder. increase venlafaxine 75 mg 1 tablet twice a day and we increase buspirone to 10 mg twice a day. Osteoarthritis multiple joints. Referral to arthritis Center for intra-articular injections. His healthcare proxy is Merry and her phone number is [phone] and he is full code He is up-to-date on all specific screening 11/29/2024 Hypertensive chronic kidney disease with stage 1 through stage 4 chronic kidney disease, or unspecified chronic kidney disease (ICD-10 - I12.9) Isra is 84 years gentleman with coronary artery disease/CABG, TAVR and f/u with Dr Gaines, obstructive sleep apnea, acid reflux, generalized anxiety disorder, recent diagnosis of SANTIZO is here for follow-up on blood work. His A1c is 8.9 which has gone up from 7.9. He also complains of osteoarthritis. Coronary artery disease/ CABG/ TAVR.He is stable and he sees cardiology Dr. Gaines at [facility]. He is on statins, beta blockers, Plavix and aspirin. Hypertension/hyperlipi demia. Blood pressure well controlled on current regimen. He has hypertriglyceridemia and he is on gemfibrozil and Zetia. Diet restrictions discussed DM type II. Last A1c is 8.9. His goal is under 9 considering his age and Medicare requirement. continue on Jardiance to 25 mg daily and added metformin 500 mg 1 tablet twice a day along with Mounjaro 2.5 mg subcutaneous injection every weekly. Side effects explained. We will titrate the dose moving forward as needed. This will help with weight loss also. 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 He also follows up with podiatry and we gave him a prescription for diabetic shoes. Chronic kidney disease stage IIIa. Differential diagnosis is long-standing history of coronary artery disease, hypertensive arteriosclerosis. Referral to course developer Dr. Garcia for close follow-up and surveillance Fatty liver/nonalcoholic hepatic steatosis. He follows up with GI plan he is stable TIA/CVA. He follows up with neurologist. He had blood work and imaging done in hospital which did not show any acute finding except for specific changes and small infarcts. Continue on Plavix and aspirin and optimize medical management. Obstructive sleep apnea. Currently on CPAP machine and tolerating it fine .Generalized anxiety disorder. increase venlafaxine 75 mg 1 tablet twice a day and we increase buspirone to 10 mg twice a day. Osteoarthritis multiple joints. Referral to arthritis Center for intra-articular injections. His healthcare proxy is Merry and her phone number is [phone] and he is full code He is up-to-date on all specific screening Plan Of Treatment Pending Test Test Name Order Date Carotid Ultrasound 11/29/2024 Chest X-ray PA and lateral 08/29/2019 Hemoglobin A1c 09/01/2022 Comp. Metabolic Panel (14) 10/03/2018 COMPREHENSIVE METABOLIC PANEL 10/31/2019 LIPID PANEL 10/31/2019 MICROALBUMIN, URINE 10/31/2019 US Abdomen 08/27/2023 Lipid Panel 10/03/2018 Urine Microalbumin (Random) 10/03/2018 Hemoglobin [id number] 12/15/2024 Future Test Test Name Order Date Basic Metabolic Panel [id number] Next Appt Details Provider Name:CHARLENE DREW , 03/26/2025 10:45:00 AM, [address] [place] [address] [address], [place], [id number], Insurance Providers Payer Name Payer Address Payer Phone Subscriber Number Group Number Insured Name Patient Relationship to Insured Coverage Start Date Coverage End Date Medicare [address] SRAVANTHI POMPA [phone] [id number] Isra Mercado Self - patient is the insured [address] [place] [address] AIDA ZHANG [phone] [id number] Isra Mercado Self - patient is the insured Medical (General) History Medical History History ICD Code hypertension, benign hyperlipidemia acid reflux benign prostatic hyperplasia (BPH) Coronary artery disease Mult iple PCI and stent placement and most recent in July 2019, 2 stents placed [place] RCA by Dr. Gaines AVR IN 2004 [facility] [place] [place] TAVR IN [place] in 2015 CABG Time for in 2004 with 2 Stent robert ions and saw Dr Gaines in the past Glaucoma Generalized anxiety disorder Obstructive sleep apnea Surgical History Surgery Date(Month/Year) CABG times 4 vessel, At [facility] by Dr. Camargo Revision CABG [place] [address] Raman Rudd se of BROKEN chest wires Infection off CABG wires in 2011 and reopened the chest at [facility] [place] Left hip replacement May 2012 Cardiac catheterization Augu 2014 at [facility] by Dr. Shan Banegas Cardiac catheterization January 2016 at [facility] [place] [place] with stenosis of left circumflex coronary artery Cardiac catheterization by Yamini Castillo for stent in RCA in May 05, 2016 Transaortic valve replacemen t of aortic valve on June 19, 2016 at [facility] in [facility] Hip replacement May 16, 2012 at [facility] by Dr. Sebastián Bustos Cardiac catheterization with stenosis of RCA by Dr. Salo Castillo in July 2017 Right eye lens implant December 08, 2017 and left eye lens implant December 15, 2017 cardiac stent placement
== END 2025-01-16 11:49 | disposition home or self-care (01) ==
PROVIDERS: PCP Hospitalist; Referring Provider Hospitalist; Visit Provider Internal Medicine Nephrology
DX: N18.31 Chronic kidney disease, stage 3a (principal); I10 Essential (primary) hypertension
CPT/HCPCS: 99204

== ENCOUNTER → 2025-01-16 10:41 | Outpatient (BNVA) | payer MEDICARE, OTHER, SELFPAY | PROVIDERS: PCP Hospitalist; Referring Provider Hospitalist; Visit Provider Internal Medicine Nephrology | DX: E11.22 Type 2 diabetes mellitus with diabetic chronic kidney disease (principal); I12.9 Hypertensive chronic kidney disease with stage 1 through stage 4 chronic kidney disease, or unspecified chronic kidney disease; N18.31 Chronic kidney disease, stage 3a; Z79.84 Long term (current) use of oral hypoglycemic drugs | CPT/HCPCS: 99202 ==

== ENCOUNTER 2025-04-17 11:36 | Outpatient (AMB) | payer MEDICARE, OTHER, SELFPAY ==
--- OUTSIDE RECORDS SUMMARY | 2025-01-23 05:30 | XMS_ITS ---
Author Organization [facility] Address [address] [address] Care Team Providers Care Muck Boss Name Role Phone Manuel Rowe Primary Care Provider Ciara Head Unavailable [phone] Allergies Allergen (clinical drug ingredient) Drug/Non Drug Allergy documented on EMR Reaction Allergy Type Onset Date Status Adhesive Tape (uncoded) Unknown Allergy Active Latex Latex (uncoded) Unknown Allergy Acti ve Medications Medication SIG (Take, Route, Fr equency, Duration) Notes Start Date End Date Status Timolol Maleate Acti ve Venlafaxine HCl Acti ve Aspirin Active Metoprolol Succinate Active Tamsulosin HCl Activ e Isosorbide Dinitrate Active Furosemide Active Gemfibrozil Active Jardiance Active Losartan Potassium A ctive Clopidogrel Bisulfate Active Ezetimibe Active amLODIPine Besylate Active Atorvastatin Calcium Active Social History Tobacco Use: Social History Observation Description Date Details (start date - stop date) Never Smoker NA - NA Tobacco use other than smoking: Question Answer Notes Are you an other tobacco user? No Tobacco Control (Standard) Question Answer Notes Tobacco use: Nonsmoker AUDIT-C (Standard) Question Answer Notes Did you have a drink containing alcohol in the p ast year? No Points 0 Interpretation Negative Vital Signs Height 5 ft 10 in in 01/23/2025 Weight 230 lbs 01/23/2025 BMI 33 kg/m2 01/23/2025 Encounters Encounter Location Date Provider Diagnosis [facility] [address] [place] [address] 01/23/2025 Ciara Ontiveros Plan Of Treatment Next Appt Details Provider Name:Tran bosch, 04/26/2025 11:00:00 AM, [address] [place], [address], Progress Notes * Isra MERCADO HDOB:1940 (85 yo M)Acc No.[id number]:01/23/2025 Progress Notes Patient: Isra EDDY Provider: Ashli Ontiveros DPM :1940 A ge:85 Y S ex:Male Date:01/23/2025 Address:[address] [place] [address], [address] Pcp:Manuel Rowe Subjective: * Chief Complaints: * * ROS: G eneral/Constitutional: Nausea d enies. V omiting d enies. H low Thirst a dmits. L oss appetite d enies. C hills d enies. F atigue a dmits.?Fever d enies. N ight Sweats d enies. U nexplained weight loss d enies. U nexplained weight gain d enies. H EENTM: Dentures a dmits. D izziness d enies. G lasses/contacts a dmits. R etinopathy d enies. B lurred/double vision d enies. T MJ?denies. D ischarge/drainage d enies. I mplants d enies. S ore throat d enies. D ental implants a dmits. H sheri of hearing a dmits. D ifficulty chewing/swallowing/speaking d enies. N ose bleeds d enies. S ore mouth d enies. ? R espiratory: On Oxygen d enies. P neumonia/pleurisy d enies.?Bronchitis d enies. E mphysema d enies. C oughing d enies. C ough blood?denies. S hortness of breath a dmits. W heezing d enies. C ardiovascular: Pacemaker d enies. M CAMP HEAD COUNSELOR d enies. W PW d enies. C HF d enies. H eart attack a dmits. S eptal defect d enies. R apid beat d enies. C hest pain a dmits. A trial Fib. d enies. M urmur/Palpitations a dmits. G astrointestinal: Hemorrhoids d enies. S tomach/Abdominal pain d enies. D ark blood stool d enies. I rritable bowel d enies. C onstipation d enies. D iarrhea d enies. H ematology: Swelling d enies. C lots d enies. V aricose Veins d enies. B ruising d enies. B leeding problem d enies. G enitourinary: Blood urine d enies. F requent/Painfu/urination/bladder control d enies. K idney stones d enies. I nfection (UTI) d enies. N ephropathy d enies. s ex trans dis (STD) d enies. P rostate a dmits. M usculoskeletal: Hammertoes d enies. B unions d enies. B ack Pain d enies. M uscle Cramps/ Resting d enies. M uscle cramps / walking d enies.?Generalized aches and pains a dmits. W eakness d enies. I nteg.: Reyes d enies. S cars d enies. C orns/calluses?admits. I ngrown nails d enies. P ainful nails d enies. O pen Sores d enies. R ashes d enies. N eurologic: Difficulty sleeping d enies. B rain disorder d enies. N umbness d enies. B alance trouble a dmits. C onfusion d enies. F ainting/blackouts d enies. T ingling a dmits. T remors d enies. * Medical History: A ngina (Chest Pain), Anxiety, Arthritis (OA, RA), Back, Hip, Knee Pain, CAD (Cholesterol), Cataracts, Diabetes, Glaucoma, Heart Disease, High Blood Pressure, Liver Disease, Numbness (Neuropathy), Poor Circulation (PVD), Reflux (GERD), Rheumatic Fever, Scarlet Fever, Measles, Mumps, Chicken Pox, Replacement heart valves. * Surgical History: l eft hip replacement 05/16/12, Aortic valve 12/30/04, chest opened infection 10/14/11, stent 01/15/19, 07/23/17, stent implant 02/27/15, 05/05/16, TAVN done 06/17/16. * Family History: M other: , cancer, diagnosed with Unspecified essential hypertension, Unspecified heart disease. F ather: , diagnosed with Unspecified essential hypertension. S iblings: cancer, diagnosed with Unspecified essential hypertension, Unspecified heart disease. * Social History: T obacco Use: T obacco use other than smoking A re you an other tobacco user? N o Tobacco Control (Standard) T obacco use: N onsmoker D rugs/Alcohol: D rugs H ave you used drugs other than those for medical reasons in the past 12 months? N o M iscellaneous: C affeine: yes. Marital status: . 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 D rug/Alcohol: A IVANIA-C (Standard) D id you have a drink containing alcohol in the past year? N o P oints 0 I nterpretation N egative * Medications: T aking amLODIPine Besylate , Taking Atorvastatin Calcium , Taking Clopidogrel Bisulfate , Taking Ezetimibe , Taking Furosemide , Taking Gemfibrozil , Taking Isosorbide Dinitrate , Taking Jardiance , Taking Losartan Potassium , Taking Metoprolol Succinate , Taking Tamsulosin HCl , Taking Venlafaxine HCl , Taking Aspirin , Taking Timolol Maleate * Allergies: A dhesive Tape, Latex. Objective: * Vitals: H t: 5 ft 10 in, Wt: 230, BMI: 33, Shoe size: 11, Ht-cm: 177.8 cm, Wt-k.33 kg. Assessment: Plan: * Treatment: * Images: * The named appointment provid er may or may not be the originator of this progress note, and it is not deemed complete until electronically signed by the appointment provider. Sign off status: Pending * Provider: Ashli Ontiveros DPM Date: 0 01/23/2025 Generated for Luis benson/Gregorio/Deya on: 02:11 PM EDT
--- NOTE | 2025-04-17 11:43 | HO.NEPHOV_ITS ---
Vital Signs 04/17/25 11:59 Height 5 ft 10 in Weight 226 lb 4 oz BMI 32.5 BP 122/64 Blood Pressure Location Lt brachial Position Sitting Pulse 64 Pulse Source Pulse Oximeter Pulse Oximetry (%) 96 Oxygen Delivery Method Room Air Intake Visit Reasons: 3mnth follow up Account Consultant Required: No Accompanied by: Spouse Allergies adhesive tape Allergy (Verified 04/17/25 11:58) Unknown guaifenesin (From Maxiphen) Allergy (Verified 04/17/25 11:58) Unknown niacin Allergy (Verified 04/17/25 11:58) Unknown phenylephrine (From Maxiphen) Allergy (Verified 04/17/25 11:58) Unknown HPI Comments Details: Isra was seen for F/U for CKD. He is 85 years of age who has been in good h ealth. He is a diabetic . His A1c has been high and has been initiated on Mounjaro. He is also on Jardiance. He denies any retinopathy, significant proteinuria or neuropathy. He has H/O CVA, CAD, CABG, carotid disease and TAVR. He does not take any excessive nonsteroidal anti-inflammatories. He has no history of dry eyes and dry mouth or generalized joint pains. He does not get urinary infections. He tries to maintain good hydration. He has no hearing issues, sinusitis, epistaxis, photosensitivity, urinary symptoms, history of renal calculus, flank pain, new bone pain. He has no history of hypercalcemia. His serum creatinine has gone up from baseline. He is clinically well and was without any specific complaints [facility] Medical History (Updated 01/16/25 @ 10:58 by Toan Garcia MD) JOSUÉ (obstructive sleep apnea) Generalized anxiety disorder Glaucoma Coronary artery disease BPH (benign prostatic hyperplasia) HLD (hyperlipidemia) Hypertension, benign Surgical History (Updated 01/15/25 @ 09:55 by Darcy Burkett MA) History of coronary artery stent placement H/O eye surgery History of cardiac catheterization History of left hip replacement Hx of CABG S/P TAVR (transcatheter aortic valve replacement) Family History (Updated 01/16/25 @ 10:53 by Darcy Burkett MA) Mother Cancer Heart disease Diabetes mellitus Sister Cancer Heart disease Diabetes mellitus Brother Cancer Heart disease Father Heart disease Social History (Updated 01/16/25 @ 10:51 by Darcy Burkett MA) Alcohol intake: never Patient Tobacco Use Status: Never used Tobacco Review of Systems Const All systems reviewed & are unremarkable except as noted in HPI and below Physical Exam Const General: comfortable and no acute distress Orientation/consciousness: patient oriented x3 HEENT Head: Yes normocephalic Mouth: Normal oral and palatal mucosa present Eyes EOM: EOMs intact bilaterally Neck Neck: Yes supple Resp Auscultation: clear to auscultation bilaterally Cardio Jugular venous distension: no JVD Rate: regular rate GI Palpation (GI): Soft to palpation Auscultation: normal bowel sounds General: Yes no CVA tenderness Back/Spine/Pelvis Back: no CVA tenderness Skin General skin exam: no rashes or lesions noted Neuro General: patient oriented x3 and moves all extremities Extrem General: Yes no pedal edema Assessment & Plan Assessment & Plan (1) CKD stage 3a, GFR 45-59 ml/min: Code(s): N18.31 - Chronic kidney disease, stage 3a Category: Medical (2) Hypertension: Code(s): I10 - Essential (primary) hypertension Category: Medical Qualifiers: Hypertension type: primary hypertension Qualified Code(s): I10 - Essential (primary) hypertension Plan Isra has CKD likely from long standing hypertension, DM and vascular disease. He is not known to have any significant proteinuria. He does not take any excessive nonsteroidal inflammatories. He denies any renal calculi , microscopic hematuria , pedal edema or retinopathy. He has good urine output and there is no reason to suspect any obstructive uropathy. I asked him to cut down sodium in the diet and maintain good hydration. He is on Jardiance as well as losartan/HCTZ. I have ordered repeat renal functions along with further blood work. I plan to do creatinine clearance and Doppler of his renal arteries with time. All questions answered. Follow-up appointment given Orders: Orders Electrolytes 6 Months I10 - Essential (primary) hypertension, N18.31 - Chronic kidney disease, stage 3a Blood Urea Nitrogen 6 Months I10 - Essential (primary) hypertension, N18.31 - Chronic kidney disease, stage 3a Creatinine 6 Months I10 - Essential (primary) hypertension, N18.31 - Chronic kidney disease, stage 3a Calcium 6 Months I10 - Essential (primary) hypertension, N18.31 - Chronic kidney disease, stage 3a Coding Level of Care Code Est Pt Level 4 (70823) Diagnoses CKD stage 3a, GFR 45-59 ml/min N18.31 Primary hypertension I10 Hypertension type: primary hypertension
[2025-04-17 11:59] VITALS: BP 122/64; PULSE 64; O2SAT 96; BMI 32.5
--- OUTSIDE RECORDS SUMMARY | 2025-04-17 14:11 | XMS_ITS | Patient Health Record ---
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 Name Role Phone Soledad Manuel Primary Care Provider Unavailabl e Black, Ciara Unavailable [phone] Tran Wilkins Unavailable [phone] Allergies Allergen (clinical drug ingredient) Drug/Non Drug Allergy documented on EMR Reaction Allergy Type Onset Date Status Adhesive Tape (uncoded) Unknown Allergy Active Latex Latex (uncoded) Unknown Allergy Acti ve Results Component Value Reference Range Notes HEMOGLOBIN A1C (GLYCOHEMOGLO BIN) Reviewed date:01/29/2025 08:29:14 AM Interpretation: Performing Lab: Notes/Report: HEMOGLOBIN A1C % (HH) 8.9 Reason For Referral No Information Medications Medication SIG (Take, Route, Frequency, Duration) Notes Start Date End Date Status Metoprolol Succinate Active Losartan Potassium A ctive Jardiance Active Isosorbide Dinitrate Active Gemfibrozil Active Furosemide Active Ezetimibe Active Clopidogrel Bisulfate Active Timolol Maleate Acti ve busPIRone HCl Active Aspirin Active Atorvastatin Calcium Active Venlafaxine HCl Acti ve amLODIPine Besylate Active Extra Depth Orthopedic Shoes (1 Pair) with Customized Heat Molded Multidensity Innersoles (3 Pair) Dx: NIDDM/Polyneuropathy (E11.42), Hammertoe Foot Deformity (M20.41,M20.42), Preulcerative Skin Lesion(s) (L85.1); Duration: 365 days 01/29/2025 Active Tamsulosin HCl Activ e Immunizations Vaccine Route Administration Date Status Comme nts Influenza Unknown 04/18/2024 Administered Social History Tobacco Use: Social History Observation Description Date Details (start date - stop date) Never Smoker NA - NA Tobacco use other than smoking: Question Answer Notes Are you an other tobacco user? No Tobacco Control (Standard) Question Answer Notes Tobacco use: Nonsmoker Additional Findings: Tobacco non-user Current no nsmoker AUDIT-C (Standard) Question Answer Notes Did you have a drink containing alcohol in the p ast year? No Points 0 Interpretation Negative Problems Problem Type SNOMED Code ICD Code Onset Dates Problem Status W/U Status Risk Notes Problem Acquired hammer toe of right foot (0649958804391821 ) Other hammer toe(s) (acquired), right foot (M20.41) Active confirmed Problem Acquired hammer toe of left foot (9936957917070909 ) Other hammer toe(s) (acquired), left foot (M20.42) Active confirmed Problem Polyneuropathy due to type 2 diabetes mellitus (386064749) Type 2 diabetes mellitus with diabetic polyneuropathy (E11.42) Active confirmed Vital Signs Blood pressure diastolic 75 mm Hg 01/29/2025 Height 5 ft 10 in in 01/29/2025 Blood pressure systolic 125 mm Hg 01/29/2025 Weight 230 lbs 01/29/2025 BMI 33 kg/m2 01/29/2025 Encounters Encounter Location Date Provider Diagnosis [address] [place] [address] 01/29/2025 Tran Wilkins Type 2 diabetes mellitus with diabetic polyneuropathy E11.42 ; Metatarsalgia of left foot M77.42 ; Tinea unguium B35.1 ; Other hammer toe(s) (acquired), right foot M20.41 ; Other hammer toe(s) (acquired), left foot M20.42 ; Pain in left foot M79.672 ; Pain in left ankle and joints of left foot M25.572 ; Bursitis of intermetatarsal bursa of left foot M77.52 ; Pain in right foot M79.671 ; Pain in right ankle and joints of right foot M25.571 ; Bursitis of intermetatarsal bursa of right foot M77.51 and Metatarsalgia, right foot M77.[address] [place] [id number] 11/03/2024 [facility] [place] [address] [place] [address] 12/15/2024 [facility] [place] [address] [place] [address] 01/26/2025 [facility] [place] [address] [place] [address] 01/29/2025 Ciara Ontiveros Assessments Encounter Date Diagnosis (ICD Code) Assessment Notes Treatment Notes Treatment Clinical Notes Section Notes 01/29/2025 Type 2 diabetes mellitus with diabetic polyneuropathy (ICD-10 - E11.42) 01/29/2025 Metatarsalgia of left foot (ICD-10 - M77.42) 01/29/2025 Tinea unguium (ICD-10 - B35.1) 01/29/2025 Other hammer toe(s) (acquired), right foot (ICD-10 - M20.41) Patient Educated with: DIABETIC FOOT CARE INSTRUCTIONS. pdf (DIABETIC FOOT CARE INSTRUCTIONS. pdf) 01/29/2025 Other hammer toe(s) (acquired), left foot (ICD-10 - M20.42) 01/29/2025 Pain in left foot (ICD-10 - M79.672) 01/29/2025 Pain in left ankle and joints of left foot (ICD-10 - M25.572) 01/29/2025 Bursitis of intermetatarsal bursa of left foot (ICD-10 - M77.52) 01/29/2025 Pain in right foot (ICD-10 - M79.671) 01/29/2025 Pain in right ankle and joints of right foot (ICD-10 - M25.571) 01/29/2025 Bursitis of intermetatarsal bursa of right foot (ICD-10 - M77.51) 01/29/2025 Metatarsalgia, right foot (ICD-10 - M77.41) Plan Of Treatment Next Appt Details Provider Name:Tran bosch, 04/26/2025 11:00:00 AM, [address] [facility], [place], [address], Insurance Providers Payer Name Payer Address Payer Phone Subscriber Number Group Number Insured Name Patient Relationship to Insured Coverage Start Date Coverage End Date Medicare [facility] [employer] [address] [place] [address] [id number] Isra Mercado Self - patient is the insured 7 [employer] [place] [address] [place] [phone] [id number] Isra Mercado Self - patient is the insured 7 Medical (General) History Medical History History ICD Code Angina (Chest Pain) Anxiety Arthritis (OA, RA) Back, Hip, Knee Pain CAD (Cholesterol) Cataracts Diabetes Glaucoma Heart Disease High Blood Pressure Liver Disease Numbness (Neuropathy) Poor Circulation (PVD) Reflux (GERD) Rheumatic Fever Scarlet Fever Measles Mumps Chicken Pox replacement heart valves Surgical History Surgery Date(Month/Year) left hip replacement 05/16/12 Aortic valve 12/30/04 chest opened infection 10/14/11 stent 01/15/19, 07/23/17 stent implant 02/27/15, 05/05/16 TAVN done 06/17/16
--- OUTSIDE RECORDS SUMMARY | 2025-04-17 14:11 | XMS_ITS | Patient Health Record ---
Author Organization [employer] [facility] Address [address] [place] [address] Care Team Providers Care General Teller Name Role Phone CHARLENE DREW Primary Care Provider Wilfredo Stewart Unavailable [phone] Allergies Allergen (clinical drug ingredient) Drug/Non Drug Allergy documented on EMR Reaction Allergy Type Onset Date Status tape (uncoded) Unknown Allergy Activ e Maxiphen Unknown Drug Allergy Active niacin Niacin Unknown Drug Allergy Active Results Component Value Reference Range Notes Hemoglobin [id number] Reviewed date:07/22/2024 08:19:22 AM Interpretation: Performing Lab:[facility], [address], Phone - [phone], Director - Ziggy Notes/Report: Hemoglobin A1c 7.9 4.8-5.6 % . Prediabetes: 5.7 - 6.4 Diabetes: >6.4 Glycemic control for adults with diabetes: <7.0 Lipid Panel-[id number] Reviewed date:07/22/2024 08:23:28 AM Interpretation: Performing Lab:[facility], [address] [facility], Phone - [phone], Director - Ziggy Notes/Report: Cholesterol, Total 146 100-199 mg/dL Triglycerides 332 0-149 mg/dL HDL Cholesterol 29 >39 mg/dL VLDL Cholesterol Enrique 52 5-40 mg/dL LDL Chol Calc (NIH) 65 0-99 mg/dL Hemoglobin [id number] Reviewed date:03/08/2025 07:49:18 AM Interpretation: Performing Lab:[facility], [address] [facility], Phone - [phone], Director - MDCarlyndry Notes/Report: Hemoglobin A1c 6.5 4.8-5.6 % . Prediabetes: 5.7 - 6.4 Diabetes: >6.4 Glycemic control for adults with diabetes: <7.0 Basic Metabolic Panel ([id number] Reviewed date:03/08/2025 07:49:45 AM Interpretation: Performing Lab:[facility], Phone - [phone], Director - [place]aphay Notes/Report: Glucose 120 70-99 mg/dL BUN 35 8-27 mg/dL Creatinine 1.34 0.76-1.27 mg/dL eGFR 53 >59 mL/min/1.73 BUN/Creatinine Ratio 26 10-24 Sodium 138 134-144 mmol/L Potassium 3.9 3.5-5.2 mmol/L Chloride 99 96-106 mmol/L Carbon Dioxide, Total 19 20-29 mmol/L Calcium 10.1 8.6-10.2 mg/dL Basic Metabolic Panel (7)-[id number] Reviewed date:11/16/2024 07:42:50 AM Interpretation: Performing Lab:[facility], Phone - [phone], Director - Ziggy Notes/Report: Glucose 157 70-99 mg/dL BUN 46 8-27 mg/dL Creatinine 1.29 0.76-1.27 mg/dL eGFR 55 >59 mL/min/1.73 BUN/Creatinine Ratio 36 10-24 Sodium 138 134-144 mmol/L Potassium 3.7 3.5-5.2 mmol/L Chloride 97 96-106 mmol/L Carbon Dioxide, Total 18 20-29 mmol/L Lipid Panel-[id number] Reviewed date:11/16/2024 07:43:06 AM Interpretation: Performing Lab:[facility], Phone - [phone], Director - Giacomodry Notes/Report: Cholesterol, Total 144 100-199 mg/dL Triglycerides 285 0-149 mg/dL HDL Cholesterol 32 >39 mg/dL VLDL Cholesterol Enrique 46 5-40 mg/dL LDL Chol Calc (NIH) 66 0-99 mg/dL Hemoglobin [id number] Reviewed date:11/16/2024 07:43:15 AM Interpretation: Performing Lab:Ira Castro [address] [place] [address], Phone - [phone], Director - Ziggy Notes/Report: Hemoglobin A1c 8.9 4.8-5.6 % . Prediabetes: 5.7 - 6.4 Diabetes: >6.4 Glycemic control for adults with diabetes: <7.0 Reason For Referral Reason Evaluation and manag ement Diagnosis 1 Fatty (change of) li tran, not elsewhere classified (K76.0) Referral Organization [facility] Referring Provider First Name CHARLENE Referring Provider Last Name [facility] Referring Provider Speciality Internal edicine Referred Provider Specialty Dietitian General Notes Referral sent to [facility] ([address] [place] [address] ) - Office will call patient for scheduling., Luisito Callaway 05/03/2024 02:38:31 PM > Referral Priority Routine Reason ckd stage 3a Pleas e evaluate and treat Diagnosis 1 Atherosclerotic hear t disease of [place] coronary artery without angina pectoris (I25.10) Referral Organization [facility] Referring Provider First Name CHARLENE Referring Provider Last Name [facility] Referring Provider Speciality Internal edicine Referred Provider Specialty Nephrology General Notes Please call the fabrice ent to schedule the appointment, Krista Reyes 12/04/2024 03:41:43 PM > Referral Priority Routine Reason Arthritis both hands - [facility]thritis center Please evaluate and treat Diagnosis 1 Atherosclerotic hear t disease of [place] coronary artery without angina pectoris (I25.10) Referral Organization [facility] Referring Provider First Name CHARLENE Referring Provider Last Name [facility] Referring Provider Speciality Internal edicine Referred Provider Specialty Rheumatology General Notes Please call the fabrice ent to schedule the appointment, Krista Reyes 12/04/2024 03:38:56 PM > Referral Priority Routine Medications Medication SIG (Take, Route, Frequency, Duration) Notes Start Date End Date Status Co Q 10 100 MG 1 capsule with a aliya l Orally Once a day; Duration: 30 day(s) Active Guzman Aspirin EC Low Dose 81 MG 1 tablet Orally Once a day; Duration: 30 day(s) Active Metoprolol Succinate ER 50 MG TAKE 1 TABLET EVERY MORNING; Duration: 90 Active amLODIPine Besylate 10 MG 1 tablet Orall y Once a day; Duration: 90 Active Venlafaxine HCl 75 MG 1 tablet with food Orally Once a day; Duration: 90 days Active Hydrocortisone 2.5 % 1 application Externally Twice a day; Duration: 30 days 04/02/2023 Active Ezetimibe 10 MG TAKE 1 TABLET EVERY DAY; Duration: 90 Active Atorvastatin Calcium 80 MG TAKE 1 TABLET EVERY DAY; Duration: 90 days Active Esomeprazole Magnesium 20 MG 1 capsule Orally Once a day Active Tirzepatide 2.5 MG/0.5ML 2.5 mg Subcutan eous daily; Duration: 30 days 11/29/2024 Active Breo Ellipta 100-25 MCG/ACT 1 puff Inhalation Once a day Active metFORMIN HCl 500 MG 1 tablet with a aliya l Orally twice a day; Duration: 30 days 11/29/2024 Active Apoaequorin 10 MG as directed Orally Active Januvia 25 MG as directed Orally daily; Duration: 30 days 12/15/2024 Active Tamsulosin HCl 0.4 MG 1 capsule Orally e very other day Active Misc. Devices - DIABETIC SHOES; Duration: 100 days 11/29/2024 Active Centrum Silver 50+Men - as directed Orally Active Isosorbide Mononitrate ER 30 MG TAKE 1 TABLET TWICE DAILY; Duration: 90 Active Timolol Maleate 0.5 % 1 drop into both e yes Ophthalmic BID Active Metoprolol Succinate ER 25 MG TAKE 1 TABLET AT BEDTIME; Duration: 90 Active Jardiance 25 MG 1 tablet in the morn ing Orally Once a day; Duration: 90 days Active Gemfibrozil 600 MG TAKE 1 TABLET TWICE A DAY 30 MINUTES BEFORE MORNING AND EVENING MEALS; Duration: 90 Active Furosemide 20 MG 1 tablet Orally Once a day 03/29/2025 Active Benzonatate 100 MG 1 capsule as needed Orally Three times a day; Duration: 7 days 05/06/2023 Not-Taking Docusate Sodium 100 MG 1 capsule as need ed Orally Once a day Active Albuterol Sulfate HFA 108 (90 Base) MCG/ACT INHALE 1 PUFF EVERY 4 HOURS NEEDED; Duration: 30 Active Mounjaro 5 MG/0.5ML as directed Subcutaneous weekly; Duration: 30 days 03/29/2025 Active cloNIDine HCl 0.1 MG TAKE 1 TABLET EVERY DAY; Duration: 90 Active Fluticasone Propionate 50 MCG/ACT USE 1 SPRAY IN EACH NOSTRIL ONE TIME DAILY; Duration: 90 Active Pantoprazole Sodium 40 MG TAKE 1 TABLET EVERY DAY; Duration: 90 Active busPIRone HCl 10 MG 1 tablet Orally Twic e a day; Duration: 90 days Active Nitroglycerin 0.[address] 1 TABLET UNDER THE TONGUE; Duration: 90 days As needed Active Clopidogrel Bisulfate 75 MG TAKE 1 TABLET EVERY DAY; Duration: 90 Active Losartan Potassium-HCTZ 50-12.5 MG TAKE 3 TABLETS ONE TIME DAILY; Duration: 90 Active Immunizations Vaccine Route Administration Date Status Comme nts COVID 19 Pfizer Unknown 07/20/2020 Administered COVID 19 Pfizer Unknown 08/10/2020 Administered COVID 19 Pfizer Unknown 04/23/2021 Administered COVID Pfizer Unknown 10/17/2021 Administered COVID-19 Pfizer Unknown 04/16/2022 Administered Flu Unknown 03/22/2024 Administered Flu High-Dose Unknown 04/12/2021 Administered Flu High-Dose Unknown 04/16/2022 Administered Flu High-Dose Unknown 03/31/2023 Administered Fluzone High Dose 09308 IM Intramuscular 03/29/2025 Admini stered Influenza High Dose Unknown 04/21/2018 Administered Influenza, [...] W/U Status Risk Notes Problem Diabetic nephropathy (218571355) Diabetes mellitus due to underlying condition with diabetic nephropathy (E08.21) Active confirmed Problem Disorder due to type 2 diabetes mellitus (256053972) Type 2 diabetes mellitus with unspecified complications (E11.8) Active confirmed Problem Obesity due to excess calories (013414322) Other obesity due to excess calories (E66.09) Active confirmed Problem Mixed hyperlipidemia (327718953) Mixed hyperlipidemia (E78.2) Active confirmed Problem Anxiety disorder (614360135) Anxiety disorder, unspecified (F41.9) Active confirmed Problem Obstructive sleep apnea syndrome (disorder) (31643729) Obstructive sleep apnea (adult) (pediatric) (G47.33) Active confirmed Problem Chronic kidney disease due to hypertension (731573011308993) Hypertensive chronic kidney disease with stage 1 through stage 4 chronic kidney disease, or unspecified chronic kidney disease (I12.9) Active confirmed Problem Angina pectoris (574807041) Angina pectoris, unspecified (I20.9) Active confirmed Problem Atherosclerotic heart disease of [place] coronary artery without angina pectoris (015783200859642) Atherosclerotic heart disease of [place] coronary artery without angina pectoris (I25.10) Active confirmed Problem Coronary arteriosclerosis of coronary artery bypass graft (204137020) Atherosclerosis of coronary artery bypass graft(s) without angina pectoris (I25.810) Active confirmed Problem Aortic valve disorder (0285131) Other nonrheumatic aortic valve disorders (I35.8) Active confirmed Problem Carotid artery occlusion (614736405) Occlusion and stenosis of unspecified carotid artery (I65.29) Active confirmed Problem Gastro-esophageal reflux disease without esophagitis (863285458) Gastro-esophageal reflux disease without esophagitis (K21.9) Active confirmed Problem Umbilical hernia (950798207) Umbilical hernia without obstruction or gangrene (K42.9) Active confirmed Problem Fatty liver (451461685) Fatty (change of) liver, not elsewhere classified (K76.0) Active confirmed Problem Degeneration of thoracolumbar intervertebral disc (28905688) Other intervertebral disc degeneration, thoracolumbar region (M51.35) Active confirmed Problem Disorder of urinary bladder (06393595) Other specified disorders of bladder (N32.89) Active confirmed Problem Balanitis (38202413) Balanitis (N48.1) Active confirmed Problem Abnormal gait (47462065) Other abnormalities of gait and mobility (R26.89) Active confirmed Problem Impaired fasting glucose (433409839) Impaired fasting glucose (R73.01) Active confirmed Problem Essential hypertension (73208258) Essential (primary) hypertension (I10) Active confirmed Problem Benign prostatic hypertrophy without outflow obstruction (378389142) Benign prostatic hyperplasia without lower urinary tract symptoms (N40.0) Active confirmed Problem Chronic kidney disease stage 3A (disorder) (249670480) Chronic kidney disease, stage 3a (N18.31) Active confirmed Vital Signs Heart Rate 69 /min 03/29/2025 Temperature 96.7 degrees Fahrenheit 03/29/2025 Blood pressure diastolic 68 mm Hg 03/29/2025 Oximetry 98 % 03/29/2025 Height 68.50 in 03/29/2025 Blood pressure systolic 120 mm Hg 03/29/2025 Weight 225.6 lbs 03/29/2025 BMI 33.8 kg/m2 03/29/2025 Encounters Encounter Location Date Provider Diagnosis [address] [place] [address] 05/03/2024 CHANG GUL Atherosclerotic hear t disease of [place] coronary artery without angina pectoris I25.10 ; Annual physical exam Z00.00 ; Essential (primary) hypertension I10 ; Mixed hyperlipidemia E78.2 ; Obstructive sleep apnea (adult) (pediatric) G47.33 ; Type 2 diabetes mellitus with unspecified complications E11.8 ; Encounter for general adult medical examination without abnormal findings Z00.00 and Anxiety disorder, unspecified F41.[address] [place] [address] 08/03/2024 CHANG GUL Atherosclerotic hear t disease of [place] coronary artery without angina pectoris I25.10 ; Essential (primary) hypertension I10 ; Mixed hyperlipidemia E78.2 ; Obstructive sleep apnea (adult) (pediatric) G47.33 ; Type 2 diabetes mellitus with unspecified complications E11.8 ; Encounter for general adult medical examination without abnormal findings Z00.00 and Anxiety disorder, unspecified F41.[address] [place] [address] 11/29/2024 CHANG GUL Atherosclerotic hear t disease of [place] coronary artery without angina pectoris I25.10 ; [...] disease, or unspecified chronic kidney disease I12.[address] [place] [address] 03/29/2025 CHARLENE DREW Atherosclerotic hear t disease of [place] coronary artery without angina pectoris I25.10 ; Essential (primary) hypertension I10 ; Mixed hyperlipidemia E78.2 ; Anxiety disorder, unspecified F41.9 ; Gastro-esophageal reflux disease without esophagitis K21.9 ; Obstructive sleep apnea (adult) (pediatric) G47.33 ; Encounter for immunization Z23 ; Chronic kidney disease, stage 3a N18.31 ; Hypertensive chronic kidney disease with stage 1 through stage 4 chronic kidney disease, or unspecified chronic kidney disease I12.9 and Diabetes mellitus due to underlying condition with diabetic nephropathy E08.[address] [place] [address] 05/03/[address] [place] [address] 05/03/[address] [place] [address] 11/29/2024 CHARLENE DREW Type 2 diabetes mellitus with unspecified complications E11.[address] [place] [address] 12/05/2024 CHARLENE DREW Type 2 diabetes mellitus with unspecified complications E11.[address] [place] [address] 12/13/2024 Wilfredo Stewart [address] [place] [address] 12/15/2024 Ghroshan Benjaminum Type 2 diabetes mellitus with unspecified complications E11.[address] [place] [address] 12/15/2024 Ghroshan Normanloum Type 2 diabetes mellitus with unspecified complications E11.[address] [place] [address] 12/18/2024 Ghroshan Normanloum Type 2 diabetes mellitus with unspecified complications E11.8 [facility] [address] [place] [address] 01/01/2025 [facility] [address] [place] [address] 01/11/2025 [facility] [address] [place] [address] 03/29/2025 [facility] Assessments Encounter Date Diagnosis (ICD Code) Assessment Notes Treatment Notes Treatment Clinical Notes Section Notes 05/03/2024 Atherosclerotic heart disease of [place] coronary artery without angina pectoris (ICD-10 - I25.10) Isra is 84 years gentleman with coronary artery disease/CABG, TAVR and f/u with Dr Gaines, obstructive sleep apnea, acid reflux, generalized anxiety disorder, recent diagnosis of SANTIZO is here for annual physical. Coronary artery disease/ CABG/ TAVR.He is stable and he sees cardiology Dr. Gaines at [facility]. He is scheduled for echocardiogram in the [...] is Merry and her phone number is [phone] and he is full code He is [...] and he sees cardiology Dr. Gaines at [facility]. He is scheduled for echocardiogram in the [...] is Merry and her phone number is [phone] and he is full code He is up-to-date on all specific screening 08/03/2024 Atherosclerotic heart disease of [place] coronary artery without angina pectoris (ICD-10 - I25.10) Isra is 84 years gentleman with coronary artery disease/CABG, TAVR and f/u with Dr Gaines, obstructive sleep apnea, acid reflux, generalized anxiety disorder, recent diagnosis of SANTIZO is here for annual physical. Coronary artery disease/ CABG/ TAVR.He is stable and he sees cardiology Dr. Gaines at [facility]. He is on statins, beta blockers, Plavix [...] is Merry and her phone number is [phone] and he is full code He is [...] and he sees cardiology Dr. Gaines at [facility]. He is on statins, beta blockers, Plavix [...] is Merry and her phone number is [phone] and he is full code He is up-to-date on all specific screening 11/29/2024 Atherosclerotic heart disease of [place] coronary artery without angina pectoris (ICD-10 - [...] and he sees cardiology Dr. Gaines at [facility]. He is on statins, beta blockers, Plavix [...] weight loss also. He follows up with consumer loan underwriter. He also follows up with podiatry and we gave him a prescription for diabetic shoes. Chronic kidney disease stage IIIa. Differential diagnosis is long-standing history of coronary artery disease, hypertensive arteriosclerosis. Referral to grain merchandising manager Dr. Garcia for close follow-up and surveillance [...] is Merry and her phone number is [phone] and he is full code He is [...] and he sees cardiology Dr. Gaines at [facility]. He is on statins, beta blockers, Plavix [...] weight loss also. He follows up with consumer loan underwriter. He also follows up with podiatry and we gave him a prescription for diabetic shoes. Chronic kidney disease stage IIIa. Differential diagnosis is long-standing history of coronary artery disease, hypertensive arteriosclerosis. Referral to grain merchandising manager Dr. Garcia for close follow-up and surveillance [...] is Merry and her phone number is [phone] and he is full code He is [...] mellitus with unspecified complications (ICD-10 - E11.8) 03/29/2025 Atherosclerotic heart disease of [place] coronary artery without angina pectoris (ICD-10 - I25.10) Isra is 85 years gentleman with coronary artery disease/CABG, TAVR and f/u with Dr Gaines, chronic kidney disease stage III a, obstructive sleep apnea, acid reflux, generalized anxiety disorder, recent diagnosis of SANTIZO is here for f/u. Hypertension/hyperlipi demia. His blood pressure is well controlled on metoprolol ER 75 mg 1 tablet daily, losartan/HCTZ 50/12.5 mg, clonidine 0.1 mg daily, amlodipine 10 mg daily. He is on atorvastatin, gemfibrozil and Zetia and advised dietary restriction to improve triglycerides. Coronary artery disease. Stable on current regimen of metoprolol ER 75 mg daily, isosorbide mononitrate ER 30 mg daily. He is also on Lasix 20 mg daily along with Jardince. He he is also on Plavix 75 mg daily. He has lost 5 pounds since last visit. Obstructive sleep apnea currently on CPAP machine and is tolerating the machine with no daytime sleepiness. Generalized anxiety disorder. Continue on venlafaxine 75 mg daily and is also on buspirone 10 mg twice a day Acid reflux. Continue Protonix 40 mg daily. Diabetes mellitus type 2 with nephropathy. He is on Metformin 500 mg 1 tablet twice a day and Mounjaro 5 mg every weekly along with Jardiance 25 mg daily. He is also on statins and losartan. He is seen consumer loan underwriter in the past 1 year and he also follows with podiatry. Chronic kidney disease stage IIIa. Stable at this point and he follows up with Dr. Garcia. Avoid NSAIDs. Obesity. Patient has lost 5.5 pounds and we increased Mounjaro to 5 mg every weekly. He is tolerating the medication fine. 03/29/2025 Essential (primary) hypertension (ICD-10 - I10) Isra is 85 years gentleman with coronary artery disease/CABG, TAVR and f/u with Dr Gaines, chronic kidney disease stage III a, obstructive sleep apnea, acid reflux, generalized anxiety disorder, recent diagnosis of SANTIZO is here for f/u. Hypertension/hyperlipi demia. His blood pressure is well controlled on metoprolol ER 75 mg 1 tablet daily, losartan/HCTZ 50/12.5 mg, clonidine 0.1 mg daily, amlodipine 10 mg daily. He is on atorvastatin, gemfibrozil and Zetia and advised dietary restriction to improve triglycerides. Coronary artery disease. Stable on current regimen of metoprolol ER 75 mg daily, isosorbide mononitrate ER 30 mg daily. He is also on Lasix 20 mg daily along with Jardince. He he is also on Plavix 75 mg daily. He has lost 5 pounds since last visit. Obstructive sleep apnea currently on CPAP machine and is tolerating the machine with no daytime sleepiness. Generalized anxiety disorder. Continue on venlafaxine 75 mg daily and is also on buspirone 10 mg twice a day Acid reflux. Continue Protonix 40 mg daily. Diabetes mellitus type 2 with nephropathy. He is on Metformin 500 mg 1 tablet twice a day and Mounjaro 5 mg every weekly along with Jardiance 25 mg daily. He is also on statins and losartan. He is seen consumer loan underwriter in the past 1 year and he also follows with podiatry. Chronic kidney disease stage IIIa. Stable at this point and he follows up with Dr. Garcia. Avoid NSAIDs. Obesity. Patient has lost 5.5 pounds and we increased Mounjaro to 5 mg every weekly. He is tolerating the medication fine. 03/29/2025 Mixed hyperlipidemia (ICD-10 - E78.2) Isra is 85 years gentleman with coronary artery disease/CABG, TAVR and f/u with Dr Gaines, chronic kidney disease stage III a, obstructive sleep apnea, acid reflux, generalized anxiety disorder, recent diagnosis of SANTIZO is here for f/u. Hypertension/hyperlipi demia. His blood pressure is well controlled on metoprolol ER 75 mg 1 tablet daily, losartan/HCTZ 50/12.5 mg, clonidine 0.1 mg daily, amlodipine 10 mg daily. He is on atorvastatin, gemfibrozil and Zetia and advised dietary restriction to improve triglycerides. Coronary artery disease. Stable on current regimen of metoprolol ER 75 mg daily, isosorbide mononitrate ER 30 mg daily. He is also on Lasix 20 mg daily along with Jardince. He he is also on Plavix 75 mg daily. He has lost 5 pounds since last visit. Obstructive sleep apnea currently on CPAP machine and is tolerating the machine with no daytime sleepiness. Generalized anxiety disorder. Continue on venlafaxine 75 mg daily and is also on buspirone 10 mg twice a day Acid reflux. Continue Protonix 40 mg daily. Diabetes mellitus type 2 with nephropathy. He is on Metformin 500 mg 1 tablet twice a day and Mounjaro 5 mg every weekly along with Jardiance 25 mg daily. He is also on statins and losartan. He is seen consumer loan underwriter in the past 1 year and he also follows with podiatry. Chronic kidney disease stage IIIa. Stable at this point and he follows up with Dr. Garcia. Avoid NSAIDs. Obesity. Patient has lost 5.5 pounds and we increased Mounjaro to 5 mg every weekly. He is tolerating the medication fine. 11/29/2024 Mixed hyperlipidemia (ICD-10 - E78.2) Isra [...] and he sees cardiology Dr. Gaines at [facility]. He is on statins, beta blockers, Plavix [...] weight loss also. He follows up with consumer loan underwriter. He also follows up with podiatry and we gave him a prescription for diabetic shoes. Chronic kidney disease stage IIIa. Differential diagnosis is long-standing history of coronary artery disease, hypertensive arteriosclerosis. Referral to grain merchandising manager Dr. Garcia for close follow-up and surveillance [...] is Merry and her phone number is [phone] and he is full code He is [...] and he sees cardiology Dr. Gaines at [facility]. He is on statins, beta blockers, Plavix [...] is Merry and her phone number is [phone] and he is full code He is [...] and he sees cardiology Dr. Gaines at [facility]. He is scheduled for echocardiogram in the [...] is Merry and her phone number is [phone] and he is full code He is [...] and he sees cardiology Dr. Gaines at [facility]. He is scheduled for echocardiogram in the [...] is Merry and her phone number is [phone] and he is full code He is up-to-date on all specific screening 03/29/2025 Anxiety disorder, unspecified (ICD-10 - F41.9) Isra is 85 years gentleman with coronary artery disease/CABG, TAVR and f/u with Dr Gaines, chronic kidney disease stage III a, obstructive sleep apnea, acid reflux, generalized anxiety disorder, recent diagnosis of SANTIZO is here for f/u. Hypertension/hyperlipi demia. His blood pressure is well controlled on metoprolol ER 75 mg 1 tablet daily, losartan/HCTZ 50/12.5 mg, clonidine 0.1 mg daily, amlodipine 10 mg daily. He is on atorvastatin, gemfibrozil and Zetia and advised dietary restriction to improve triglycerides. Coronary artery disease. Stable on current regimen of metoprolol ER 75 mg daily, isosorbide mononitrate ER 30 mg daily. He is also on Lasix 20 mg daily along with Jardince. He he is also on Plavix 75 mg daily. He has lost 5 pounds since last visit. Obstructive sleep apnea currently on CPAP machine and is tolerating the machine with no daytime sleepiness. Generalized anxiety disorder. Continue on venlafaxine 75 mg daily and is also on buspirone 10 mg twice a day Acid reflux. Continue Protonix 40 mg daily. Diabetes mellitus type 2 with nephropathy. He is on Metformin 500 mg 1 tablet twice a day and Mounjaro 5 mg every weekly along with Jardiance 25 mg daily. He is also on statins and losartan. He is seen consumer loan underwriter in the past 1 year and he also follows with podiatry. Chronic kidney disease stage IIIa. Stable at this point and he follows up with Dr. Garcia. Avoid NSAIDs. Obesity. Patient has lost 5.5 pounds and we increased Mounjaro to 5 mg every weekly. He is tolerating the medication fine. 08/03/2024 Obstructive sleep apnea (adult) (pediatric) (ICD-10 - G47.33) Isra is 84 years gentleman with coronary artery disease/CABG, TAVR and f/u with Dr Gaines, obstructive sleep apnea, acid reflux, generalized anxiety disorder, recent diagnosis of SANTIZO is here for annual physical. Coronary artery disease/ CABG/ TAVR.He is stable and he sees cardiology Dr. Gaines at [facility]. He is on statins, beta blockers, Plavix [...] is Merry and her phone number is [phone] and he is full code He is [...] and he sees cardiology Dr. Gaines at [facility]. He is on statins, beta blockers, Plavix [...] weight loss also. He follows up with consumer loan underwriter. He also follows up with podiatry and we gave him a prescription for diabetic shoes. Chronic kidney disease stage IIIa. Differential diagnosis is long-standing history of coronary artery disease, hypertensive arteriosclerosis. Referral to grain merchandising manager Dr. Garcia for close follow-up and surveillance [...] is Merry and her phone number is [phone] and he is full code He is [...] and he sees cardiology Dr. Gaines at [facility]. He is on statins, beta blockers, Plavix [...] weight loss also. He follows up with consumer loan underwriter. He also follows up with podiatry and we gave him a prescription for diabetic shoes. Chronic kidney disease stage IIIa. Differential diagnosis is long-standing history of coronary artery disease, hypertensive arteriosclerosis. Referral to grain merchandising manager Dr. Garcia for close follow-up and surveillance [...] is Merry and her phone number is [phone] and he is full code He is [...] and he sees cardiology Dr. Gaines at [facility]. He is scheduled for echocardiogram in the [...] is Merry and her phone number is [phone] and he is full code He is [...] and he sees cardiology Dr. Gaines at [facility]. He is on statins, beta blockers, Plavix [...] is Merry and her phone number is [phone] and he is full code He is up-to-date on all specific screening 03/29/2025 Gastro-esophageal reflux disease without esophagitis (ICD-10 - K21.9) Isra is 85 years gentleman with coronary artery disease/CABG, TAVR and f/u with Dr Gaines, chronic kidney disease stage III a, obstructive sleep apnea, acid reflux, generalized anxiety disorder, recent diagnosis of SANTIZO is here for f/u. Hypertension/hyperlipi demia. His blood pressure is well controlled on metoprolol ER 75 mg 1 tablet daily, losartan/HCTZ 50/12.5 mg, clonidine 0.1 mg daily, amlodipine 10 mg daily. He is on atorvastatin, gemfibrozil and Zetia and advised dietary restriction to improve triglycerides. Coronary artery disease. Stable on current regimen of metoprolol ER 75 mg daily, isosorbide mononitrate ER 30 mg daily. He is also on Lasix 20 mg daily along with Jardince. He he is also on Plavix 75 mg daily. He has lost 5 pounds since last visit. Obstructive sleep apnea currently on CPAP machine and is tolerating the machine with no daytime sleepiness. Generalized anxiety disorder. Continue on venlafaxine 75 mg daily and is also on buspirone 10 mg twice a day Acid reflux. Continue Protonix 40 mg daily. Diabetes mellitus type 2 with nephropathy. He is on Metformin 500 mg 1 tablet twice a day and Mounjaro 5 mg every weekly along with Jardiance 25 mg daily. He is also on statins and losartan. He is seen consumer loan underwriter in the past 1 year and he also follows with podiatry. Chronic kidney disease stage IIIa. Stable at this point and he follows up with Dr. Garcia. Avoid NSAIDs. Obesity. Patient has lost 5.5 pounds and we increased Mounjaro to 5 mg every weekly. He is tolerating the medication fine. 05/03/2024 Type 2 diabetes mellitus with unspecified complications (ICD-10 - E11.8) Isra is 84 years gentleman with coronary artery disease/CABG, TAVR and f/u with Dr Gaines, obstructive sleep apnea, acid reflux, generalized anxiety disorder, recent diagnosis of SANTIZO is here for annual physical. Coronary artery disease/ CABG/ TAVR.He is stable and he sees cardiology Dr. Gaines at [facility]. He is scheduled for echocardiogram in the [...] is Merry and her phone number is [phone] and he is full code He is [...] and he sees cardiology Dr. Gaines at [facility]. He is on statins, beta blockers, Plavix [...] is Merry and her phone number is [phone] and he is full code He is [...] and he sees cardiology Dr. Gaines at [facility]. He is on statins, beta blockers, Plavix [...] weight loss also. He follows up with consumer loan underwriter. He also follows up with podiatry and we gave him a prescription for diabetic shoes. Chronic kidney disease stage IIIa. Differential diagnosis is long-standing history of coronary artery disease, hypertensive arteriosclerosis. Referral to grain merchandising manager Dr. Garcia for close follow-up and surveillance [...] is Merry and her phone number is [phone] and he is full code He is up-to-date on all specific screening 03/29/2025 Obstructive sleep apnea (adult) (pediatric) (ICD-10 - G47.33) Isra is 85 years gentleman with coronary artery disease/CABG, TAVR and f/u with Dr Gaines, chronic kidney disease stage III a, obstructive sleep apnea, acid reflux, generalized anxiety disorder, recent diagnosis of SANTIZO is here for f/u. Hypertension/hyperlipi demia. His blood pressure is well controlled on metoprolol ER 75 mg 1 tablet daily, losartan/HCTZ 50/12.5 mg, clonidine 0.1 mg daily, amlodipine 10 mg daily. He is on atorvastatin, gemfibrozil and Zetia and advised dietary restriction to improve triglycerides. Coronary artery disease. Stable on current regimen of metoprolol ER 75 mg daily, isosorbide mononitrate ER 30 mg daily. He is also on Lasix 20 mg daily along with Jardince. He he is also on Plavix 75 mg daily. He has lost 5 pounds since last visit. Obstructive sleep apnea currently on CPAP machine and is tolerating the machine with no daytime sleepiness. Generalized anxiety disorder. Continue on venlafaxine 75 mg daily and is also on buspirone 10 mg twice a day Acid reflux. Continue Protonix 40 mg daily. Diabetes mellitus type 2 with nephropathy. He is on Metformin 500 mg 1 tablet twice a day and Mounjaro 5 mg every weekly along with Jardiance 25 mg daily. He is also on statins and losartan. He is seen consumer loan underwriter in the past 1 year and he also follows with podiatry. Chronic kidney disease stage IIIa. Stable at this point and he follows up with Dr. Garcia. Avoid NSAIDs. Obesity. Patient has lost 5.5 pounds and we increased Mounjaro to 5 mg every weekly. He is tolerating the medication fine. 11/29/2024 Anxiety disorder, unspecified (ICD-10 - F41.9) [...] and he sees cardiology Dr. Gaines at [facility]. He is on statins, beta blockers, Plavix [...] weight loss also. He follows up with consumer loan underwriter. He also follows up with podiatry and we gave him a prescription for diabetic shoes. Chronic kidney disease stage IIIa. Differential diagnosis is long-standing history of coronary artery disease, hypertensive arteriosclerosis. Referral to grain merchandising manager Dr. Garcia for close follow-up and surveillance [...] is Merry and her phone number is [phone] and he is full code He is [...] and he sees cardiology Dr. Gaines at [facility]. He is on statins, beta blockers, Plavix [...] is Merry and her phone number is [phone] and he is full code He is [...] and he sees cardiology Dr. Gaines at [facility]. He is scheduled for echocardiogram in the [...] is Merry and her phone number is [phone] and he is full code He is up-to-date on all specific screening 03/29/2025 Encounter for immunization (ICD-10 - Z23) Isra is 85 years gentleman with coronary artery disease/CABG, TAVR and f/u with Dr Gaines, chronic kidney disease stage III a, obstructive sleep apnea, acid reflux, generalized anxiety disorder, recent diagnosis of SANTIZO is here for f/u. Hypertension/hyperlipi demia. His blood pressure is well controlled on metoprolol ER 75 mg 1 tablet daily, losartan/HCTZ 50/12.5 mg, clonidine 0.1 mg daily, amlodipine 10 mg daily. He is on atorvastatin, gemfibrozil and Zetia and advised dietary restriction to improve triglycerides. Coronary artery disease. Stable on current regimen of metoprolol ER 75 mg daily, isosorbide mononitrate ER 30 mg daily. He is also on Lasix 20 mg daily along with Jardince. He he is also on Plavix 75 mg daily. He has lost 5 pounds since last visit. Obstructive sleep apnea currently on CPAP machine and is tolerating the machine with no daytime sleepiness. Generalized anxiety disorder. Continue on venlafaxine 75 mg daily and is also on buspirone 10 mg twice a day Acid reflux. Continue Protonix 40 mg daily. Diabetes mellitus type 2 with nephropathy. He is on Metformin 500 mg 1 tablet twice a day and Mounjaro 5 mg every weekly along with Jardiance 25 mg daily. He is also on statins and losartan. He is seen consumer loan underwriter in the past 1 year and he also follows with podiatry. Chronic kidney disease stage IIIa. Stable at this point and he follows up with Dr. Garcia. Avoid NSAIDs. Obesity. Patient has lost 5.5 pounds and we increased Mounjaro to 5 mg every weekly. He is tolerating the medication fine. 03/29/2025 Chronic kidney disease, stage 3a (ICD-10 - N18.31) Isra is 85 years gentleman with coronary artery disease/CABG, TAVR and f/u with Dr Gaines, chronic kidney disease stage III a, obstructive sleep apnea, acid reflux, generalized anxiety disorder, recent diagnosis of SANTIZO is here for f/u. Hypertension/hyperlipi demia. His blood pressure is well controlled on metoprolol ER 75 mg 1 tablet daily, losartan/HCTZ 50/12.5 mg, clonidine 0.1 mg daily, amlodipine 10 mg daily. He is on atorvastatin, gemfibrozil and Zetia and advised dietary restriction to improve triglycerides. Coronary artery disease. Stable on current regimen of metoprolol ER 75 mg daily, isosorbide mononitrate ER 30 mg daily. He is also on Lasix 20 mg daily along with Jardince. He he is also on Plavix 75 mg daily. He has lost 5 pounds since last visit. Obstructive sleep apnea currently on CPAP machine and is tolerating the machine with no daytime sleepiness. Generalized anxiety disorder. Continue on venlafaxine 75 mg daily and is also on buspirone 10 mg twice a day Acid reflux. Continue Protonix 40 mg daily. Diabetes mellitus type 2 with nephropathy. He is on Metformin 500 mg 1 tablet twice a day and Mounjaro 5 mg every weekly along with Jardiance 25 mg daily. He is also on statins and losartan. He is seen consumer loan underwriter in the past 1 year and he also follows with podiatry. Chronic kidney disease stage IIIa. Stable at this point and he follows up with Dr. Garcia. Avoid NSAIDs. Obesity. Patient has lost 5.5 pounds and we increased Mounjaro to 5 mg every weekly. He is tolerating the medication fine. 05/03/2024 Anxiety disorder, unspecified (ICD-10 - F41.9) Isra is 84 years gentleman with coronary artery disease/CABG, TAVR and f/u with Dr Gaines, obstructive sleep apnea, acid reflux, generalized anxiety disorder, recent diagnosis of SANTIZO is here for annual physical. Coronary artery disease/ CABG/ TAVR.He is stable and he sees cardiology Dr. Gaines at [facility]. He is scheduled for echocardiogram in the [...] is Merry and her phone number is [phone] and he is full code He is [...] and he sees cardiology Dr. Gaines at [facility]. He is on statins, beta blockers, Plavix [...] weight loss also. He follows up with consumer loan underwriter. He also follows up with podiatry and we gave him a prescription for diabetic shoes. Chronic kidney disease stage IIIa. Differential diagnosis is long-standing history of coronary artery disease, hypertensive arteriosclerosis. Referral to grain merchandising manager Dr. Garcia for close follow-up and surveillance [...] is Merry and her phone number is [phone] and he is full code He is [...] and he sees cardiology Dr. Gaines at [facility]. He is on statins, beta blockers, Plavix [...] weight loss also. He follows up with consumer loan underwriter. He also follows up with podiatry and we gave him a prescription for diabetic shoes. Chronic kidney disease stage IIIa. Differential diagnosis is long-standing history of coronary artery disease, hypertensive arteriosclerosis. Referral to grain merchandising manager Dr. Garcia for close follow-up and surveillance [...] is Merry and her phone number is [phone] and he is full code He is up-to-date on all specific screening 03/29/2025 Hypertensive chronic kidney disease with stage 1 through stage 4 chronic kidney disease, or unspecified chronic kidney disease (ICD-10 - I12.9) Isra is 85 years gentleman with coronary artery disease/CABG, TAVR and f/u with Dr Gaines, chronic kidney disease stage III a, obstructive sleep apnea, acid reflux, generalized anxiety disorder, recent diagnosis of SANTIZO is here for f/u. Hypertension/hyperlipi demia. His blood pressure is well controlled on metoprolol ER 75 mg 1 tablet daily, losartan/HCTZ 50/12.5 mg, clonidine 0.1 mg daily, amlodipine 10 mg daily. He is on atorvastatin, gemfibrozil and Zetia and advised dietary restriction to improve triglycerides. Coronary artery disease. Stable on current regimen of metoprolol ER 75 mg daily, isosorbide mononitrate ER 30 mg daily. He is also on Lasix 20 mg daily along with Jardince. He he is also on Plavix 75 mg daily. He has lost 5 pounds since last visit. Obstructive sleep apnea currently on CPAP machine and is tolerating the machine with no daytime sleepiness. Generalized anxiety disorder. Continue on venlafaxine 75 mg daily and is also on buspirone 10 mg twice a day Acid reflux. Continue Protonix 40 mg daily. Diabetes mellitus type 2 with nephropathy. He is on Metformin 500 mg 1 tablet twice a day and Mounjaro 5 mg every weekly along with Jardiance 25 mg daily. He is also on statins and losartan. He is seen consumer loan underwriter in the past 1 year and he also follows with podiatry. Chronic kidney disease stage IIIa. Stable at this point and he follows up with Dr. Garcia. Avoid NSAIDs. Obesity. Patient has lost 5.5 pounds and we increased Mounjaro to 5 mg every weekly. He is tolerating the medication fine. 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 Hypertension/hyperlipi demia. His blood pressure is well controlled on metoprolol ER 75 mg 1 tablet daily, losartan/HCTZ 50/12.5 mg, clonidine 0.1 mg daily, amlodipine 10 mg daily. He is on atorvastatin, gemfibrozil and Zetia and advised dietary restriction to improve triglycerides. Coronary artery disease. Stable on current regimen of metoprolol ER 75 mg daily, isosorbide mononitrate ER 30 mg daily. He is also on Lasix 20 mg daily along with Jardince. He he is also on Plavix 75 mg daily. He has lost 5 pounds since last visit. Obstructive sleep apnea currently on CPAP machine and is tolerating the machine with no daytime sleepiness. Generalized anxiety disorder. Continue on venlafaxine 75 mg daily and is also on buspirone 10 mg twice a day Acid reflux. Continue Protonix 40 mg daily. Diabetes mellitus type 2 with nephropathy. He is on Metformin 500 mg 1 tablet twice a day and Mounjaro 5 mg every weekly along with Jardiance 25 mg daily. He is also on statins and losartan. He is seen consumer loan underwriter in the past 1 year and he also follows with podiatry. Chronic kidney disease stage IIIa. Stable at this point and he follows up with Dr. Garcia. Avoid NSAIDs. Obesity. Patient has lost 5.5 pounds and we increased Mounjaro to 5 mg every weekly. He is tolerating the medication fine. 11/29/2024 Hypertensive chronic kidney disease with stage [...] and he sees cardiology Dr. Gaines at [facility]. He is on statins, beta blockers, Plavix [...] weight loss also. He follows up with consumer loan underwriter. He also follows up with podiatry and we gave him a prescription for diabetic shoes. Chronic kidney disease stage IIIa. Differential diagnosis is long-standing history of coronary artery disease, hypertensive arteriosclerosis. Referral to grain merchandising manager Dr. Garcia for close follow-up and surveillance [...] is Merry and her phone number is [phone] and he is full code He is up-to-date on all specific screening Plan Of Treatment Pending Test Test Name Order Date Carotid Ultrasound 11/29/2024 Chest X-ray PA and lateral 08/29/2019 Hemoglobin A1c 09/01/2022 Comp. Metabolic Panel (14) 10/03/2018 COMPREHENSIVE METABOLIC PANEL 10/31/2019 LIPID PANEL 10/31/2019 MICROALBUMIN, URINE 10/31/2019 US Abdomen 08/27/2023 Lipid Panel 10/03/2018 Urine Microalbumin (Random) 10/03/2018 Hemoglobin [id number] 12/15/2024 Future Test Test Name Order Date Hemoglobin [id number] 03/29/2025 Albumin/Creatinine Ratio,[id number] Lipid [id number] 03/29/2025 Comp. Metabolic Panel [id number] 2024 Next Appt Details Provider Name:CHARLENE DREW , 08/22/2025 01:00:00 PM, [address] [place] [address], [place], [id number], Insurance Providers Payer Name Payer Address Payer Phone Subscriber Number Group Number Insured Name Patient Relationship to Insured Coverage Start Date Coverage End Date Medicare [address] [place] POMPA [id number] [phone] [id number] Isra Mercado Self - patient is the insured [address] [place] [address] AIDA ZHANG [phone] [id number] Isra Mercado Self - patient is the insured Medical (General) History Medical History History ICD Code hypertension, benign hyperlipidemia acid reflux benign prostatic hyperplasia (BPH) Coronary artery disease Mult iple PCI and stent placement and most recent in July 2019, 2 stents placed in the tunica-biloxi RCA by Dr. Gaines AVR [place] 2004 [facility] TAVR [place] in 2015 CABG Time for in 2004 with 2 Stent robert ions and saw Dr Gaines in the past Glaucoma Generalized anxiety disorder Obstructive sleep apnea Surgical History Surgery Date(Month/Year) CABG times 4 vessel, At [facility] by Dr. Camargo Revision CABG [place] [address] Raman Rudd se of BROKEN chest wires Infection off CABG wires in 2011 and reopened the chest at [facility] In [place] Left hip replacement May 2012 Cardiac catheterization Augu 2014 at [facility] by Dr. Shan Banegas Cardiac catheterization January 2016 at [facility] with stenosis of left circumflex coronary artery Cardiac catheterization by Yamini Castillo for stent in RCA in May 05, 2016 Transaortic valve replacemen t of aortic valve on June 19, [address] [facility] in [facility] Hip replacement May 16, 2012 at [facility] by Dr. Sebastián Bustos Cardiac catheterization with stenosis of RCA by Dr. Salo Castillo in July 2017 Right eye lens implant December 08, 2017 and left eye lens implant December 15, 2017 cardiac stent placement
== END 2025-04-17 12:13 | disposition home or self-care (01) ==
LOC: HO.HKAS 11:37
PROVIDERS: PCP Hospitalist; Visit Provider Internal Medicine Nephrology
DX: N18.31 Chronic kidney disease, stage 3a (principal); I10 Essential (primary) hypertension
CPT/HCPCS: 99214

== ENCOUNTER → 2025-04-17 11:36 | Outpatient (BNVA) | payer MEDICARE, OTHER, SELFPAY | PROVIDERS: PCP Hospitalist; Visit Provider Internal Medicine Nephrology | DX: N18.31 Chronic kidney disease, stage 3a (principal); I10 Essential (primary) hypertension | CPT/HCPCS: 99212 ==